=== PATIENT | male | born 1945 | race Caucasian/White ===

== ENCOUNTER 2020-06-20 13:55 | Outpatient (CLI) | payer MEDICARE, BC, SELFPAY ==
--- NOTE | 2020-06-20 14:11 | CT_ITS ---
WS: [id number] CT HEAD NONCONTRAST HISTORY: DISORIENTATION TECHNIQUE: Contiguous axial imaging performed through the brain in 2.5 mm imaging. Bone and soft tiss ue windows. Sagittal and coronal reformats reviewed. All CT scans at [facility] use at ast one of these dose optimization techniques: automated exposure control; mA and/or kV adjustment pe r patient size (includes targeted exams where dose is matched to clinical indication); or iterative r econstruction. DLP: 836.77 mGy.cm COMPARISON: 04/28/2016 No acute intracranial hemorrhage, midline shift or mass effect. Mild cerebral atrophy with no midline shift. Mild chronic microvascular ischemic disease surrounding the ventricles. No acute or subacute extra-axial fluid collections. Ventricles: Normal size with no hydrocephalus. Paranasal sinuses: As visualized are clear. Mastoid air cells: Well pneumatized. Calvarium and scalp: LEFT frontal and parietal tr holes from prior subdural evacuation. CT/CT head wo con* [id number] IMPRESSION: 1. No acute intracranial hemorrhage or edema. 2. No recurrent subdural collection. 3. Chronic microvascular ischemic disease surrounding the ventricles.
--- NOTE | 2020-06-20 14:13 | USCV_ITS ---
Vickey Yadav Age: 75 Gender: M : 1945 Exam Date: 06/20/2020 14:41 Ordering Phys: Chuck Chamorro MD Technologist: Biju Ibrahim Exam Location: [facility] [place] Indication: ? TIA Risk Factors: None Previous Vascular Surgery: None Right Brachial BP: / Left Brachial BP: / Right Left Velocity (cm/s) Spectral Plaque Velocity (cm/s) Spectral Plaque Syst/Diast Broadening Syst/Diast Broadening 55.10/ 9.90 Prox CCA 54.40 / 12.20 61.70/ 16.50 Mid CCA 48.80 / 14.10 56.20/ 12.10 Distal CCA 55.30 / 13.10 Hetro 42.60/ 11.30 Prox ICA 47.80 / 11.30 Hetro 50.40/ 12.10 Mid ICA 58.50 / 16.50 42.60/ 12.10 Distal ICA 51.90 / 10.70 68.10 ECA 70.30 0.82 ICA/CCA 1.06 Antegrade Vertebral Antegrade 30.40/ 5.90 cm/s 31.90/ 6.40 cm/s Tri Subclavian Tri 67.50 40.60 FINDINGS Comparison: none available. No significant elevation of systolic or diastolic velocities. Diffuse bilateral scattered calcified plaque and intimal thickening throughout the common carotid arteries and extending through the bifurcation. Antegrade vertebral arteries. CONCLUSIONS Bilateral ICA stenosis less than 50%. Mild bilateral diffuse atherosclerosis. Dr. Siena Yadav DO (Electronically Signed) Final Date: 21 June 2020 08:06 S
== END 2020-06-20 13:56 | disposition home or self-care (01) ==
LOC: US 13:58
PROVIDERS: PCP Family Medicine; Visit Provider Family Medicine
DX: R41.0 Disorientation, unspecified (principal); R47.9 Unspecified speech disturbances; H53.9 Unspecified visual disturbance; R51 Headache; H90.3 Sensorineural hearing loss, bilateral; I10 Essential (primary) hypertension; H53.8 Other visual disturbances; R47.89 Other speech disturbances; I63.233 Cerebral infarction due to unspecified occlusion or stenosis of bilateral carotid arteries; I67.82 Cerebral ischemia
CPT/HCPCS: 70450; 93880

== ENCOUNTER 2022-07-04 18:39 | Emergency (ER) | payer MEDICARE, BC, SELFPAY ==
[2022-07-04 18:50] VITALS: BP 157/94; PULSE 60; RESP 18; TEMP 36.9; O2SAT 94; BMI 31.3
--- NOTE | 2022-07-04 19:30 | CTR_ITS ---
PROCEDURE INFORMATION: Exam: CT Head Without Contrast Exam date and time: 07/04/2022 7:35 PM Age: 77 years old Clinical indication: Pain; Headache; Prior surgery; Additional info: Confusion TECHNIQUE: Imaging protocol: Computed tomography of the head without contrast. Radiation optimization: All CT scans at this facility use at least one of these dose optimization techniques: automated exposure control; mA and/or kV adjustment per patient size (includes targeted exams where dose is matched to clinical indication); or iterative reconstruction. COMPARISON: CT head wo con* [id number] 06/20/2020 2:14 PM RADIATION DOSE METRICS: Total DLP (mGy-cm): 1146.28 FINDINGS: Brain: There are global involutional changes of the brain which are in keeping with the patient's age. Periventricular hypodensities are nonspecific but most likely reflect chronic microvascular ischemic disease. There is no acute intracranial hemorrhage or abnormal extra-axial fluid collection identified. There is no intracranial mass effect or shift of midline structures. The cabrera-white differentiation is preserved throughout. There is no sulcal effacement. The basilar cisterns are open. Cerebral ventricles: No hydrocephalus or ventricular effacement. Paranasal sinuses: There is minimal sinus mucosal disease, with no air-fluid level identified. Mastoid air cells: There is partial opacification of the left mastoid air cells. Orbital cavities: Bilateral proptosis is noted. Correlate with clinical information regarding thyroid function. Bones/joints: No calvarial fracture or destructive osseous lesions are seen. Soft tissues: Unremarkable. CT/CT head wo con* [id number] IMPRESSION: 1. No acute intracranial pathology identified by CT. 2. Left mastoid effusion.
--- NOTE | 2022-07-04 19:31 | ED_ITS ---
HPI - Neuro Symptoms/Deficit General: Chief Complaint: Neuro Symptoms/Deficit Stated Complaint: memory loss Time Seen by Provider: 07/04/22 19:20 Source: patient Mode of arrival: ambulatory Limitations: no limitations History of Present Illness: 77-year-old male who states that he had an episode today at 5 PM that lasted a little over an hour where he was confused. He states he does not remember anything that happened patient's significant other is here with him and states that he cannot remember anything he had had no other symptoms other than that. He had no weakness no slurred speech he is able ambulate. He states his symptoms of completely resolved the last 30 minutes he remembers everything currently states this is happened to him in the past and they are unsure what it was. He denies any chest pain or headaches. Associated symptoms: Deny chest pain, nausea or vomiting Review of Systems Const: Denies: fever(s), chills, body aches or change in appetite Eyes: Denies: blurry vision or eye discomfort ENMT: Denies: throat pain or dental pain Card: Denies: chest pain Resp: Denies: dyspnea GI: Denies: abdominal pain, nausea, vomiting or diarrhea : Denies: dysuria Musc: Denies: neck pain or back pain Skin/Breast: Denies: rash Neuro: Reports: confusion Psych: Denies: depression Valente/Lymph: Denies: easy bruising All/Imm: Denies: urticaria PFSH ED PFSH: Medical History (Updated 07/04/22 @ 20:37 by Olimpia Velazquez MD) No pertinent past medical history Social History Substance/Drug Use: never NIH stroke score NIHSS: Level Of Consciousness - 1a: 0 Level Of Consciousness Questions - 1b: Both Correct Level Of Consciousness Commands - 1c: Both Correct Best Gaze - 2: Normal Visual Bain - 3: No Visual Loss Facial Palsy - 4: Normal Motor Arm Right - 5: No Drift Motor Arm Left - 5: No Drift Motor Leg Right - 6: No Drift Motor Leg Left - 6: No Drift Limb Ataxia - 7: Absent Sensory - 8: Normal Best Language - 9: No Aphasia Dysarthia - 10: Normal Extinction And Inattention - 11: 0 Score: Total Score: 0 Physical Exam Const: COMMON NORMALS: no acute distress, patient oriented x3 and healthy appearing HENMT: COMMON NORMALS: normocephalic and atraumatic HEAD & SCALP: no rmocephalic and atraumatic Eye: COMMON NORMALS: Equal, round and reactive pupils present and EOMs intact bilaterally PUPIL: Yes Equal, round and reactive pupils present Neck/C-Spine: COMMON NORMALS: full ROM and supple Chest: COMMONS NORMALS: normal inspection of the chest and normal palpation of entire chest wall Resp: COMMON NORMALS: normal respiratory effort, No retractions, No use of accessory muscles and clear to auscultation bilaterally AUSCULTATION: clear to auscultation bilaterally Cardio: COMMON NORMALS: regular rate, regular rhythm and No murmurs present (Cardio) RATE: regular rate RHYTHM: regular rhythm GI: COMMON NORMALS: Normal to inspection, nondistended, normoactive bowel sounds present, Soft to palpation, non-tender and no masses PALPATION: Yes Soft to palpation Extremity: COMMON NORMALS: normal to inspection and full ROM Neuro: COMMON NORMALS: patient oriented x3, moves all extremities and no focal motor deficits Psych: COMMON NORMALS: mental status grossly normal, Normal thought process present and cooperative THOUGHT PROCESS: Normal thought process present Skin: COMMON NORMALS: no rashes or lesions noted and no wounds GENERAL SKIN EXAM: no rashes or lesions noted Course Vital Signs: Vital signs: Vital Signs Temperature 98.4 F 07/04/22 18:50 Pulse Rate 62 07/04/22 20:14 Respiratory Rate 16 07/04/22 20:14 Blood Pressure 140/92 07/04/22 20:14 Pulse Oximetry 96 07/04/22 20:14 Oxygen Delivery Me thod 07/04/22 18:50 MDM - Neuro Symptoms/Deficit Medical Decision Making Patient presents here with an episode of confusion could have been a TIA he is well-appearing here no neurodeficits he feels improved would like to go home head CT is normal he already takes a baby aspirin a day he is to follow-up with his PCP in 4 to 7 days return if worsening he understands agrees to plan. Lab Data : 07/04/22 19:50 07/04/22 19:[address] 07/04/22 19:30 IMPRESSION: 1. No acute intracranial pathology identified by CT. 2. Left mastoid effusion. Laboratory Results WBC 12.4 10^3/uL (4.0-10.0) H 07/04/22 19:50 RBC 4.97 10^6/uL (4.1-5.3) 07/04/22 19:50 Hgb 15.9 g/dL (11.7-16.6) 07/04/22 19:50 Hct 46.4 % (42.0-52.0) 07/04/22 19:50 MCV 93.4 fl (80-94) 07/04/22 19:50 MCH 32.0 pg (28.0-34.0) 07/04/22 19:50 MCHC 34.3 g/dL (30.0-36.0) 07/04/22 19:50 RDW 13.6 % (12.1-15.1) 07/04/22 19:50 Plt Count 283 10^3/cmm (130-400) 07/04/22 19:50 MPV 10.3 fL (7.4-10.4) 07/04/22 19:50 Neut % (Auto) 67.5 % 07/04/22 19:50 Lymph % (Auto) 21.6 % 07/04/22 19:50 Twiggs % (Auto) 9.2 % 07/04/22 19:50 Eos % (Auto) 0.7 % 07/04/22 19:50 Baso % (Auto) 0.6 % 07/04/22 19:50 Neut # (Auto) 8.32 10^3/uL (1.8-7.7) H 07/04/22 19:50 Lymph # (Auto) 2.7 10^3/uL (0.8-4.8) 07/04/22 19:50 Twiggs # (Auto) 1.1 10^3/uL (0.2-0.9) H 07/04/22 19:50 Eos # (Auto) 0.1 10^3/uL (0.0-0.8) 07/04/22 19:50 Baso # (Auto) 0.1 10^3/uL (0.0-0.1) 07/04/22 19:50 Nucleated RBC % (auto) 0 % 07/04/22 19:50 Nucleated RBCs # 0.0 /100WBC 07/04/22 19:50 Sodium 134 mmol/L (136-145) L 07/04/22 19:50 Potassium 3.8 mmol/L (3.5-5.1) 07/04/22 19:50 Chloride 97 mmol/L (98-107) L 07/04/22 19:50 Carbon Dioxide 27 mmol/L (22-29) 07/04/22 19:50 Anion Gap 13.8 (5-19) 07/04/22 19:50 BUN 22 mg/dL (8-23) 07/04/22 19:50 Creatinine 1.3 mg/dL (0.7-1.2) H 07/04/22 19:50 GFR Calculation Not Reportable 07/04/22 19:50 Glucose 121 mg/dL (65-115) H 07/04/22 19:50 POC Glucose 102 mg/dL (70-110) 07/04/22 19:49 Calculated Osmolality 283 mOsm/kg (285-295) L 07/04/22 19:50 Calcium 9.6 mg/dL (8.5-10.5) 07/04/22 19:50 Total Bilirubin 0.4 mg/dL (0.15-1.2) 07/04/22 19:50 AST 21 U/L (0-40) 07/04/22 19:50 ALT 19 U/L (0-41) 07/04/22 19:50 Alkaline Phosphatase 62 U/L (40-130) 07/04/22 19:50 Total Protein 8.0 g/dL (6.6-8.7) 07/04/22 19:50 Albumin 4.5 g/dL (3.5-5.2) 07/04/22 19:50 Globulin 3.5 g/dL (1.3-4.6) 07/04/22 19:50 Urine Color Yellow (Yellow) 07/04/22 19:54 Urine Appearance Clear (CLEAR) 07/04/22 19:54 Urine pH 5 (5-7) 07/04/22 19:54 Ur Specific [place] 1.010 (1.005-1.030) 07/04/22 19:54 Urine Protein Neg (Negative) 07/04/22 19:54 Urine Glucose (UA) Norm (Normal) 07/04/22 19:54 Urine Ketones Negative (Negative) 07/04/22 19:54 Urine Blood Neg (Negative) 07/04/22 19:54 Urine Nitrate Negative (Negative) 07/04/22 19:54 Urine Bilirubin Neg (Negative) 07/04/22 19:54 Urine Urobilinogen Norm mg/dL (Negative) 07/04/22 19:54 Ur Leukocyte Esterase Negative (Negative) 07/04/22 19:54 Discharge Plan Discharge Patient Disposition: Home Clinical Impression: Brain TIA Discharge Orders: Discharge ED (Routine); Ordered 07/04/22 Ordered By: Olimpia Velazquez Referrals: Chuck Chamorro MD [Primary Care Provider] - 1-3 days Discharge Diet: Advance as tolerated Discharge Activity: Resume usual activity Patient Instructions: Transient Ischemic Attack (ED) Coding Level of Care Code 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
[2022-07-04 19:56] LABS: Basophils # 0.1 10^3/uL (0.0-0.1); Basophils % 0.6 %; Eosinophils # 0.1 10^3/uL (0.0-0.8); Eosinophils % 0.7 %; Hematocrit 46.4 % (42.0-52.0); Hemoglobin 15.9 g/dL (11.7-16.6); Lymphocytes # 2.7 10^3/uL (0.8-4.8); Lymphocytes % 21.6 %; Mean Corpuscular HGB Conc 34.3 g/dL (30.0-36.0); Mean Corpuscular Volume 93.4 fl (80-94); Mean Platelet Volume 10.3 fL (7.4-10.4); Monocytes # 1.1 10^3/uL (0.2-0.9); Monocytes % 9.2 %; Neutrophils # 8.32 10^3/uL (1.8-7.7); Neutrophils % 67.5 %; Nucleated Red Blood Cells % 0 %; Platelet Count 283 10^3/cmm (130-400); Red Blood Count 4.97 10^6/uL (4.1-5.3); Red Cell Distribution Width 13.6 % (12.1-15.1); White Blood Count 12.4 10^3/uL (4.0-10.0)
--- NOTE | 2022-07-04 19:57 | ECG_ITS ---
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 Measurements Intervals [place] Rate: 56 P: 41 MA: 209 QRS: -47 QRSD: 118 T: 1 QT: 407 QTc: 393 Interpretive Statements SINUS BRADYCARDIA LEFT ANTERIOR FASCICULAR BLOCK [QRS AXIS <= -45, QR IN I, RS IN II] VOLTAGE CRITERIA FOR LVH [MEETS CRITERIA IN ONE OF: R(aVL), S(V1), R(V5), R(V5/V6)+S(V1)] POSSIBLE LATERAL MYOCARDIAL INFARCTION , PROBABLY OLD [30 ms Q WAVE IN I/aVL/V5/V6] Compared to ECG 04/28/2016 17:24:16 Left anterior fascicular block now present Myocardial infarct finding now present Sinus rhythm no longer present Left-axis deviation no longer present Electronically Signed On 07-06-2022 22:02:35 CDT by Nasir Duke M.D. [id number]
[2022-07-04 19:58] LABS: Glucose Point of Care 102 mg/dL (70-110)
[2022-07-04 20:00] LABS: Add Urine Microscopic? NO; Bilirubin Urine Neg (Negative); Blood Urine Neg (Negative); Glucose Urine UA Norm (Normal); Ketones Urine Negative (Negative); Nitrate Urine Negative (Negative); Protein Urine Neg (Negative); Urine Appearance Clear (CLEAR); Urine Color Yellow (Yellow); pH Urine 5 (5-7)
[2022-07-04 20:01] LABS: Charge for UA Resulting for Rev; Leukocyte Esterase Urine Negative (Negative); Urobilinogen Urine Norm (Negative)
[2022-07-04 20:14] VITALS: BP 140/92; PULSE 62; RESP 16; O2SAT 96
[2022-07-04 20:19] LABS: Alanine Aminotransferase 19 U/L (0-41); Albumin Level 4.5 g/dL (3.5-5.2); Alkaline Phosphatase 62 U/L (40-130); Anion Gap 13.8 (5-19); Aspartate Amino Transferase 21 U/L (0-40); Blood Urea Nitrogen 22 mg/dL (8-23); Calcium 9.6 mg/dL (8.5-10.5); Carbon Dioxide 27 mmol/L (22-29); Chloride 97 mmol/L (98-107); Globulin 3.5 g/dL (1.3-4.6); Glucose 121 mg/dL (65-115); Osmolality Calculated 283 mOsm/kg (285-295); Potassium 3.8 mmol/L (3.5-5.1); Sodium 134 mmol/L (136-145); Total Bilirubin 0.4 mg/dL (0.15-1.2)
[2022-07-04 20:49] VITALS: BP 139/94; PULSE 61; RESP 16; O2SAT 95
== END 2022-07-04 20:52 | disposition home or self-care (01) ==
PROVIDERS: Emergency Provider Emergency Medicine; PCP Family Medicine
DX: G45.9 Transient cerebral ischemic attack, unspecified (principal)
CPT/HCPCS: 36416; 70450; 80053; 81003; 82962; 85025; 93005; 99285

== ENCOUNTER 2024-09-28 19:44 | Inpatient (IN) | payer MEDICARE, SELFPAY ==
--- NOTE | 2024-09-28 19:50 | CTR_ITS ---
PROCEDURE INFORMATION: Exam: CT Head Without Contrast Exam date and time: 09/28/2024 7:49 PM Age: 79 years old Clinical indication: Stroke-like symptoms; Altered mental status/memory loss; Additional info: Possible stroke TECHNIQUE: Imaging protocol: Computed tomography of the head without contrast. Radiation optimization: All CT scans at this facility use at least one of these dose optimization techniques: automated exposure control; mA and/or kV adjustment per patient size (includes targeted exams where dose is matched to clinical indication); or iterative reconstruction. Other technique: STROKE PROTOCOL was implemented. COMPARISON: CT head wo con* [id number] 07/04/2022 7:35 PM RADIATION DOSE METRICS: Total DLP (mGy-cm): 1107.5 FINDINGS: Brain: Moderate periventricular white matter changes likely related to chronic ischemic small vessel disease. No intracranial mass, hemorrhage or signs of recent infarct. Brain atrophy present. No midline shift or mass effect. Cerebral ventricles: No ventriculomegaly. Paranasal sinuses: Visualized sinuses are unremarkable. No fluid levels. Mastoid air cells: Visualized mastoid air cells are well aerated. Bones: Unremarkable. No acute fracture. Soft tissues: Unremarkable. CT/CT head wo con* [id number] IMPRESSION: No acute intracranial abnormality. ASSESSMENT: ASPECTS ([place] Stroke Program Early CT Score) is 10.
--- NOTE | 2024-09-28 19:50 | CTR_ITS ---
PROCEDURE INFORMATION: Exam: CTA Head With Contrast, Arteriography Exam date and time: 09/28/2024 7:54 PM Age: 79 years old Clinical indication: Stroke-like symptoms; Altered mental status/memory loss; Additional info: Possible stroke TECHNIQUE: Imaging protocol: Computed tomographic angiography of the head with contrast. Exam focused on the arteries. 3D rendering (Not supervised by radiologist): MIP and/or 3D reconstructed images were created by the technologist. Radiation optimization: All CT scans at this facility use at least one of these dose optimization techniques: automated exposure control; mA and/or kV adjustment per patient size (includes targeted exams where dose is matched to clinical indication); or iterative reconstruction. Contrast material: OMNI 350; Contrast volume: 100 ml; Contrast route: INTRAVENOUS (IV); COMPARISON: CT head wo con* [id number] 09/28/2024 7:49 PM RADIATION DOSE METRICS: Total DLP (mGy-cm): 490.2 FINDINGS: ANTERIOR CIRCULATION: Right internal carotid artery: Intracranial segment is patent with no significant stenosis. No aneurysm. Right middle cerebral artery: No occlusion or significant stenosis. No aneurysm. Right anterior cerebral artery: No occlusion or significant stenosis. No aneurysm. Left internal carotid artery: Intracranial segment is patent with no significant stenosis. No aneurysm. Left middle cerebral artery: No occlusion or significant stenosis. No aneurysm. Left anterior cerebral artery: No occlusion or significant stenosis. No aneurysm. POSTERIOR CIRCULATION: Right vertebral artery: No occlusion or significant stenosis. No aneurysm. Left vertebral artery: No occlusion or significant stenosis. No aneurysm. Basilar artery: No occlusion or significant stenosis. No aneurysm. Right posterior cerebral artery: No occlusion or significant stenosis. No aneurysm. Left posterior cerebral artery: No occlusion or significant stenosis. No aneurysm. Brain: No definite mass, mass effect, or midline shift. Cerebral ventricles: No ventriculomegaly. Bones/joints: Unremarkable. No acute fracture. Soft tissues: Unremarkable. PROCEDURE INFORMATION: Exam: CTA Neck With Contrast Exam date and time: 09/28/2024 7:54 PM Age: 79 years old Clinical indication: Stroke-like symptoms; Altered mental status/memory loss; Additional info: Possible stroke TECHNIQUE: Imaging protocol: Computed tomographic angiography of the neck with contrast. Exam focused on the cervical segments of the vasculature. 3D rendering (Not supervised by radiologist): MIP and/or 3D reconstructed images were created by the technologist. Radiation optimization: All CT scans at this facility use at least one of these dose optimization techniques: automated exposure control; mA and/or kV adjustment per patient size (includes targeted exams where dose is matched to clinical indication); or iterative reconstruction. Contrast material: OMNI 350; Contrast volume: 100 ml; Contrast route: INTRAVENOUS (IV); COMPARISON: CT head wo con* [id number] 09/28/2024 7:49 PM RADIATION DOSE METRICS: Total DLP (mGy-cm): 490.2 FINDINGS: Right common carotid artery: No stenosis. No dissection or occlusion. Right internal carotid artery: No stenosis of the extracranial segment. No dissection or occlusion. Right external carotid artery: No occlusion or stenosis of the origin. Left common carotid artery: No stenosis. No dissection or occlusion. Left internal carotid artery: No stenosis of the extracranial segment. No dissection or occlusion. Left external carotid artery: No occlusion or stenosis of the origin. Right vertebral artery: No stenosis. No dissection or occlusion. Left vertebral artery: No stenosis. No dissection or occlusion. Soft tissues: Normal. No significant soft tissue swelling. Bones/joints: No acute fracture. CT/CT angio headneck* [id number] IMPRESSION: No large vessel stenosis or occlusion. IMPRESSION: No stenosis or occlusion. REFERENCES: NASCET CRITERIA. The degree of stenosis in the cervical segment of the internal carotid artery is based on NASCET criteria. Normal is no stenosis. Mild is less than 50% stenosis. Moderate is 50-69% stenosis. Severe is 70% to 99% stenosis. Total occlusion is no detectable patent lumen.
--- NOTE | 2024-09-28 19:50 | XRR_ITS ---
PROCEDURE INFORMATION: Exam: XR Chest Exam date and time: 09/28/2024 8:12 PM Age: 79 years old Clinical indication: Other: Weak; Additional info: Weakness TECHNIQUE: Imaging protocol: Radiologic exam of the chest. Views: 1 view. COMPARISON: CT angio headneck* [id number] 09/28/2024 7:54 PM FINDINGS: Lungs: There is mild pulmonary vascular congestion. The lungs are free of consolidation. Pleural spaces: Unremarkable. No pleural effusion. No pneumothorax. Heart/Mediastinum: The heart is enlarged. Bones/joints: Unremarkable. XR/XR chest 1V portable [id number] IMPRESSION: Cardiomegaly with mild pulmonary vascular congestion.
--- NOTE | 2024-09-28 19:51 | PC.NURSE ---
pt unable to answer SI questions at this time
[2024-09-28] MEDS: iohexol 350 mg/mL 500 mL Btl (per mL) IV (20:01)
[2024-09-28 20:04] VITALS: BP 142/75; PULSE 84; RESP 16; TEMP 37; O2SAT 98
[2024-09-28 20:20] LABS: Glucose Point of Care 95 mg/dL (70-110)
--- NOTE | 2024-09-28 20:35 | W.ED.NEUROSD ---
HPI - Neuro Symptoms/Deficit General: Chief Complaint: Neuro Symptoms/Deficit Stated Complaint: stroke alert Time Seen by Provider: 09/28/24 19:46 History of Present Illness: 79-year-old man who presents emergency room by ambulance with concern for stroke. Symptoms started just over an hour prior to arrival. tells me later that he initially had some right arm weakness slurred speech and facial droop. He went straight to the CT scanner as stroke was called prior to arrival. I evaluated him initially in the CT scanner. He had some difficulty with word finding and difficulty following commands at that time. He was moving all of his extremities. He can tell me his name but had a hard time with complex commands at that time. I saw no facial droop. No visual deficits. Related Data Allergies Allergy/AdvReac Type Severity Reaction Status Date / Time No Known Allergies Allergy Verified 07/04/22 18:50 Review of Systems Narrative: Constitutional symptoms: Negative except as documented in HPI. Skin symptoms: Negative except as documented in HPI. Eye symptoms: Negative except as documented in HPI. ENMT symptoms: Negative except as documented in HPI. Respiratory symptoms: Negative except as documented in HPI. Cardiovascular symptoms: Negative except as documented in HPI. Gastrointestinal symptoms: Negative except as documented in HPI. Genitourinary symptoms: Negative except as documented in HPI. Musculoskeletal symptoms: Negative except as documented in HPI. Neurologic symptoms: Negative except as documented in HPI. Psychiatric symptoms: Negative except as documented in HPI. Endocrine symptoms: Negative except as documented in HPI. [facility] ED PFSH: Medical History (Updated 09/28/24 @ 22:29 by Starr Mercedes MD) Hypertension Hypothyroidism (acquired) 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', thyroidectomy Traumatic brain injury No pertinent past medical history Social History Substance/Drug Use: never Course Vital Signs: Vital signs: Vital Signs Temperature 98.6 F 09/28/24 20:04 Pulse Rate 67 09/28/24 22:24 Respiratory Rate 18 09/28/24 22:24 Blood Pressure 139/83 09/28/24 22:24 Pulse Oximetry 98 09/28/24 22:24 Oxygen Delivery Me thod Room Air 09/28/24 22:24 MDM - Neuro Symptoms/Deficit Medical Decision Making Medical decision making: Differential diagnosis for patient with focal neurologic deficit(s) includes but not limited to and based on the above HPI, review of systems and physical exam: ischemic stroke, hemorrhagic stroke and embolic stroke secondary to atrial fibrillation), TIA, Velasquez's palsey, metabolic encephalopathy with previous stroke. Orders placed to evaluate differential diagnosis based on the above differential, HPI and physical exam NIH Stroke Scale/Score (NIHSS) from [employer] on 09/28/2024 All calculations should be rechecked by clinician prior to use RESULT SUMMARY: 3 points NIH Stroke Scale INPUTS: 1A: Level of consciousness ?> 0 = Alert; keenly responsive 1B: Ask month and age ?> 1 = 1 question right 1C: 'Blink eyes' & 'squeeze hands' ?> 1 = Performs 1 task 2: Horizontal extraocular movements ?> 0 = Normal 3: Visual grullon ?> 0 = No visual loss 4: Facial palsy ?> 0 = Normal symmetry 5A: Left arm motor drift ?> 0 = No drift for 10 seconds 5B: Right arm motor drift ?> 0 = No drift for 10 seconds 6A: Left leg motor drift ?> 0 = No drift for 5 seconds 6B: Right leg motor drift ?> 0 = No drift for 5 seconds 7: Limb Ataxia ?> 0 = No ataxia 8: Sensation ?> 0 = Normal; no sensory loss 9: Language/aphasia ?> 1 = Mild-moderate aphasia: some obvious changes, without significant limitation 10: Dysarthria ?> 0 = Normal 11: Extinction/inattention ?> 0 = No abnormality Consultation: I spoke with Dr. Thomason who is on-call for the neurology. Based on my exam at the time he had a stroke scale of 3. He does not recommend TNKase at this time. He came and evaluated the patient and symptoms had improved some and at best he had a stroke scale of 1 at that time. He recommends Plavix. Aspirin. Initiation of statin. Admission. Possible cardiology consultation. Lab Review: Laboratory results were reviewed and interpreted by myself the emergency room physician. Mild leukocytosis with a white count of 12,000. No anemia. No renal failure. CT head: No acute intracranial process. no intracranial hemorrhage, no evidence of infarct. no evidence of acute fracture.This was reviewed and interpreted by myself the ER physician. CTA of the head and neck: No obvious stenosis or occlusions are identified. No mass. This was reviewed and interpreted by myself the emergency room physician. I also reviewed the radiology report. I reviewed the patient's medical record. Reexamination: Patient remained stable. No increased work of breathing. No altered mental status. No focal motor deficits. He has had some fluctuations of his difficulty with speaking but no facial droop or focal motor deficits. He is moving all his extremities and following commands at this time. Consultation: I spoke with Dr. Matthew who is on-call for the hospitalist service who agrees to admission. Assessment and plan: TIA versus a stroke ?Plavix and aspirin given in the emergency room. -I discussed the patient with the hospitalist on-call who is admitting the patient. - Discussed findings and plan with patient. Answered any questions. - All laboratory values were reviewed and interpreted personally by myself, the ER physician - All imaging was reviewed and interpreted personally by myself, the ER physician. - Evaluation and treatment of this problem were appropriate in the emergency setting Lab Data 09/28/24 20:08 09/28/24 20:08 Radiology Impressions Chest X-Ray 09/28/24 19:50 IMPRESSION: Cardiomegaly with mild pulmonary vascular congestion. Head CT 09/28/24 19:50 IMPRESSION: No acute intracranial abnormality. ASSESSMENT: ASPECTS ([place]arl[place] Stroke Program Early CT Score) is 10. ADDENDUM: 09/28/242010 COMMENT: THIS REPORT CONTAINS FINDINGS THAT MAY BE CRITICAL TO PATIENT CARE. The exam findings were verbally communicated by me to STARR MERCEDES via telephone conference at 8:10 PM [facility] on 09/28/2024. The findings were acknowledged and understood. Head/Neck CTA 09/28/24 19:50 IMPRESSION: No large vessel stenosis or occlusion. IMPRESSION: No stenosis or occlusion. REFERENCES: NASCET CRITERIA. The degree of stenosis in the cervical segment of the internal carotid artery is based on NASCET criteria. Normal is no stenosis. Mild is less than 50% stenosis. Moderate is 50-69% stenosis. Severe is 70% to 99% stenosis. Total occlusion is no detectable patent lumen. ADDENDUM: 09/28/242020 COMMENT: THIS REPORT CONTAINS FINDINGS THAT MAY BE CRITICAL TO PATIENT CARE. The exam findings were verbally communicated by me to STARR MERCEDES via telephone conference at 8:19 PM [facility] on 09/28/2024. The findings were acknowledged and understood. Laboratory Results WBC 12.63 10^3/uL (3.29-11.43) H 09/28/24 20:08 RBC 4.57 10^6/uL (3.85-5.65) 09/28/24 20:08 Hgb 14.10 g/dL (11.27-16.99) 09/28/24 20:08 Hct 42.1 % (37-53) 09/28/24 20:08 MCV 92.1 fl (82-101) 09/28/24 20:08 MCH 30.9 pg (27-33) 09/28/24 20:08 MCHC 33.5 g/dL (30-55) 09/28/24 20:08 RDW 14.0 % (12.1-15.1) 09/28/24 20:08 Plt Count 272 10^3/cmm (157-399) 09/28/24 20:08 MPV 10.8 fL (7.4-10.4) H 09/28/24 20:08 Neut % (Auto) 63.1 % 09/28/24 20:08 Lymph % (Auto) 24.9 % 09/28/24 20:08 [place] % (Auto) 10.4 % 09/28/24 20:08 Eos % (Auto) 0.9 % 09/28/24 20:08 Baso % (Auto) 0.4 % 09/28/24 20:08 Neut # (Auto) 7.97 10^3/uL (1.8-7.7) H 09/28/24 20:08 Lymph # (Auto) 3.2 10^3/uL (0.8-4.8) 09/28/24 20:08 [place] # (Auto) 1.3 10^3/uL (0.2-0.9) H 09/28/24 20:08 Eos # (Auto) 0.1 10^3/uL (0.0-0.8) 09/28/24 20:08 Baso # (Auto) 0.1 10^3/uL (0.0-0.1) 09/28/24 20:08 Nucleated RBC % (auto) 0 % 09/28/24 20:08 Nucleated RBCs # 0.0 /100WBC 09/28/24 20:08 PT 13.40 SECONDS (12.1-14.9) 09/28/24 20:08 INR 0.96 (0.8-1.2) 09/28/24 20:08 APTT 28.7 SECONDS (23.9-36.7) 09/28/24 20:08 Sodium 137 mmol/L (136-145) 09/28/24 20:08 Potassium 3.2 mmol/L (3.5-5.1) L 09/28/24 20:08 Chloride 100 mmol/L (98-107) 09/28/24 20:08 Carbon Dioxide 25 mmol/L (22-29) 09/28/24 20:08 Anion Gap 15.2 (5-19) 09/28/24 20:08 BUN 20 mg/dL (8-23) 09/28/24 20:08 Creatinine 1.0 mg/dL (0.7-1.2) 09/28/24 20:08 GFR Calculation Not Reportable 09/28/24 20:08 Glucose 98 mg/dL (65-115) 09/28/24 20:08 POC Glucose 95 mg/dL (70-110) 09/28/24 20:14 Calculated Osmolality 287 mOsm/kg (285-295) 09/28/24 20:08 Calcium 8.6 mg/dL (8.5-10.5) 09/28/24 20:08 Total Bilirubin 0.4 mg/dL (0.15-1.2) 09/28/24 20:08 AST 15 U/L (0-40) 09/28/24 20:08 ALT 16 U/L (0-41) 09/28/24 20:08 Alkaline Phosphatase 57 U/L (40-130) 09/28/24 20:08 Total Protein 6.6 g/dL (6.6-8.7) 09/28/24 20:08 Albumin 3.8 g/dL (3.5-5.2) 09/28/24 20:08 Globulin 2.8 g/dL (1.3-4.6) 09/28/24 20:08 All radiology interpretation(s) finalized by discharge Discharge Plan Discharge Patient Disposition: Admitted As Inpatient Admit Provider: Sara Matthew Clinical Impression: TIA (transient ischemic attack), Dysarthria Condition: Stable Coding Level of Care Code ED House Decorator for Aris Morales
[2024-09-28 20:37] LABS: Basophils # 0.1 10^3/uL (0.0-0.1); Basophils % 0.4 %; Eosinophils # 0.1 10^3/uL (0.0-0.8); Eosinophils % 0.9 %; Hematocrit 42.1 % (37-53); Lymphocytes # 3.2 10^3/uL (0.8-4.8); Lymphocytes % 24.9 %; Mean Corpuscular HGB Conc 33.5 g/dL (30-55); Mean Corpuscular Hemoglobin 30.9 pg (27-33); Mean Corpuscular Volume 92.1 fl (82-101); Mean Platelet Volume 10.8 fL (7.4-10.4); Monocytes # 1.3 10^3/uL (0.2-0.9); Monocytes % 10.4 %; Neutrophils # 7.97 10^3/uL (1.8-7.7); Neutrophils % 63.1 %; Nucleated Red Blood Cells % 0 %; Platelet Count 272 10^3/cmm (157-399); Red Blood Count 4.57 10^6/uL (3.85-5.65); White Blood Count 12.63 10^3/uL (3.29-11.43)
[2024-09-28 20:45] LABS: INR 0.96 (0.8-1.2)
[2024-09-28 20:46] LABS: Partial Thromboplastin Time 28.7 SECONDS (23.9-36.7)
[2024-09-28 20:52] LABS: Alanine Aminotransferase 16 U/L (0-41); Albumin Level 3.8 g/dL (3.5-5.2); Alkaline Phosphatase 57 U/L (40-130); Anion Gap 15.2 (5-19); Aspartate Amino Transferase 15 U/L (0-40); Blood Urea Nitrogen 20 mg/dL (8-23); Calcium 8.6 mg/dL (8.5-10.5); Carbon Dioxide 25 mmol/L (22-29); Chloride 100 mmol/L (98-107); Creatinine Clr Calc Pharmacy 64.1323; Globulin 2.8 g/dL (1.3-4.6); Glucose 98 mg/dL (65-115); Osmolality Calculated 287 mOsm/kg (285-295); Potassium 3.2 mmol/L (3.5-5.1); Sodium 137 mmol/L (136-145); Total Bilirubin 0.4 mg/dL (0.15-1.2); Total Protein 6.6 g/dL (6.6-8.7)
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
--- NOTE | 2024-09-28 21:49 | USCV_ITS ---
Vickey Yadav Age: 79 Gender: M : 1945 Exam Date: 09/28/2024 23:19 Ordering Phys: Sara Matthew MD Technologist: MARS Exam Location: [facility] – [place] Indication: TIA, RIGHT hemiparesis, RIGHT facial droop, dysphasia, BUBBLE STUDY IS ORDERED BP: 139 / 83 HR: 59 Rhythm: Sinus Technical Quality: Adequate MEASUREMENTS (Male / Female) Normal Values 2D ECHO LV Diastolic Diameter PLAX 4.7 cm 4.2 - 5.9 / 3.9 - 5.3 cm IVS Diastolic Thickness 1.8 cm 0.6 - 1.0 / 0.6 - 0.9 cm IVS Systolic Thickness 1.6 cm LVPW Diastolic Thickness 2.0 cm 0.6 - 1.0 / 0.6 - 0.9 cm LVPW Systolic Thickness 2.0 cm LVOT Diameter 2.1 cm LV Ejection Fraction 2D Teich 56.2 % LV Ejection Fraction MOD 4C 54.2 % LV Ejection Fraction MOD 2C 64.2 % LV Ejection Fraction 2C AL 66.0 % LA Diameter 3.6 cm Aorta at Sinotubular Diameter 3.1 cm IVC Diameter 1.6 cm M-MODE LA Ao Ratio MM 1.3 AV Cusp Separation MM 1.7 cm DOPPLER AV Peak Velocity 152.0 cm/s LVOT Peak Velocity 77.0 cm/s AV Area Cont Eq vti 2.0 cm squared AV Area Cont Eq pk 1.8 cm squared MV Peak Velocity 124.0 cm/s MV Area PHT 3.4 cm squared Mitral E to A Ratio 0.8 TR Peak Velocity 270.0 cm/s TR Peak Gradient 29.2 mmHg TV Peak E Velocity 53.0 cm/s PV Peak Velocity 104.0 cm/s FINDINGS Left Ventricle Mild left ventricular hypertrophy. No regional wall motion abnormalities. Normal left ventricular size and systolic function, EF 56%. Right Ventricle The right ventricle is normal in size and function. Right Atrium The right atrium is normal in size. Left Atrium The left atrium is normal in size. Mitral Valve Trace to mild mitral valve regurgitation. Aortic Valve Thickened aortic valve. Mild aortic valve calcification. Features of aortic valve sclerosis. Mild aortic valve regurgitation. Tricuspid Valve Mild tricuspid valve regurgitation. Estimated pulmonary artery peak systolic pressure 35 mmHg Pulmonic Valve No gross abnormalities noted Pericardium Normal pericardium without effusion. Aorta Normal ascending aorta dimension. IVC Normal inferior vena cava. CONCLUSIONS Mild left ventricular hypertrophy. No regional wall motion abnormalities. Normal left ventricular size and systolic function, EF 56%. Trace to mild mitral valve regurgitation. Thickened aortic valve. Mild aortic valve calcification. Features of aortic valve sclerosis. Mild aortic valve regurgitation. Mild tricuspid valve regurgitation. Estimated pulmonary artery peak systolic pressure 35 mmHg. There is no pericardial effusion. There are no intracardiac masses. No similar previous studies are available for comparison Dr Aldair Carver MD FAC (Electronically Signed) Final Date: 29 September 2024 09:09 S
[2024-09-28] MEDS: enoxaparin 40 mg/0.4 mL Syringe SUBCUT (22:06)
[2024-09-28] MEDS: thiamine 100 mg/mL 2mL SDV IVP (22:06)
[2024-09-28] MEDS: aspirin 81 mg Chew Tablet 324 MG PO (22:07)
[2024-09-28] MEDS: clopidogrel 75 mg Tablet PO (22:07)
[2024-09-28 22:24] VITALS: BP 139/83; PULSE 67; RESP 18; O2SAT 98
--- NOTE | 2024-09-28 22:28 | ECG_ITS ---
[facility] Test Date: 2024-09-29 Pat Name: Vickey Yadav Department: Room: 277 Gender: Male Silo Operator: : 1945 Requested By: Starr Weathers Order Number: [id number] Lux MD: Aldair Carver M.D. Measurements Intervals [place] Rate: 58 P: 37 DC: 204 QRS: -43 QRSD: 111 T: 12 QT: 440 QTc: 435 Interpretive Statements SINUS BRADYCARDIA POSSIBLE LEFT ATRIAL ENLARGEMENT [-0.1mV P-WAVE IN V1/V2] LEFT AXIS DEVIATION [QRS AXIS < -30] PATTERN CONSISTENT WITH PULMONARY DISEASE POSSIBLE LEFT VENTRICULAR HYPERTROPHY [VOLTAGE CRITERIA PLUS LAE OR QRS WIDENING] Compared to ECG 07/04/2022 19:57:03 Left-axis deviation now present Left anterior fascicular block no longer present Myocardial infarct finding no longer present Electronically Signed On 09-29-2024 18:19:23 KNOT BORER by Aldair Carver M.D. [email or web address]
[2024-09-28 22:30] VITALS: BP 139/83; PULSE 65; RESP 16; O2SAT 96
[2024-09-28 23:10] LABS: Estmated Average Glucose 128; Hemoglobin A1C 6.1 % (4.0-6.0)
[2024-09-28 23:27] VITALS: BP 167/89; PULSE 64; RESP 17; TEMP 36.8; O2SAT 96
[2024-09-28 23:47] LABS: Bilirubin Urine Negative (Negative); Blood Urine Negative (Negative); Glucose Urine UA Negative (Normal); Ketones Urine Trace (Negative); Leukocyte Esterase Urine Negative (Negative); Nitrate Urine Negative (Negative); Protein Urine Negative (Negative); Urine Appearance Clear (CLEAR); Urine Color Yellow (Yellow)
[2024-09-28 23:52] LABS: Bacteria Urine None Seen /hpf; Hyaline Casts Urine 0.81 /lpf; RBC Urine 0-2 /hpf (0-2); Squamous Epithelial Cell Urine 0-5 /hpf (0-5); WBC Urine 0-5 /hpf (0-5)
[2024-09-28 23:56] LABS: Specific Gravity, Urine 1.047 (1.005-1.030)
[2024-09-29] VITALS (8 sets, daily range): BP systolic 123–165; BP diastolic 68–86; PULSE 59–75; RESP 16–19; TEMP 36.5–37.1; O2SAT 90–96; BMI 29.0
[2024-09-29 00:34] LABS: Thyroid Stimulating Hormone 0.05 uIU/mL (0.27-4.20); Vitamin B12 979 pg/mL (232-1245)
[2024-09-29] MEDS: levothyroxine 150 mcg Tablet PO (05:42)
[2024-09-29 06:30] LABS: Anion Gap 16.4 (5-19); Blood Urea Nitrogen 16 mg/dL (8-23); Calcium 8.8 mg/dL (8.5-10.5); Carbon Dioxide 22 mmol/L (22-29); Chloride 102 mmol/L (98-107); Creatinine Clr Calc Pharmacy 67.8986; Glucose 104 mg/dL (65-115); Magnesium 1.9 mg/dL (1.7-2.3); Osmolality Calculated 285 mOsm/kg (285-295); Potassium 3.4 mmol/L (3.5-5.1); Sodium 137 mmol/L (136-145)
--- NOTE | 2024-09-29 08:01 | MR_ITS ---
WS: [id number] MRI HEAD WITHOUT CONTRAST TECHNIQUE: Sagittal T1, T2 axial, T2 axial FLAIR, axial and coronal T1 images, axial susceptibility w eighted imaging, axial diffusion weighted images, and coronal T2 images were obtained. CLINICAL INFORMATION: cva COMPARISON: CT 09/28/2024 FINDINGS: A few patchy foci of restricted diffusion in the LEFT posterior superior temporal lobe extending into the posterior parietal occipital junction compatible with acute ischemia. Minimal associated edema. No significant mass effect. No midline shift. No other foci of restricted diffusion. Moderate small vessel changes. Moderate parenchymal volume loss. Small vessel changes in the elisha. No rmal vascular flow voids at the skull base. No extra-axial fluid collections. Prominent perivascular spaces in the basal ganglia. Mild mucosal thickening in the ethmoid air cells. Mucosal thickening LEF T mastoid tip. Normal posterior nasopharynx. Normal optic chiasm and pituitary infundibulum. Mild sym metric atrophy temporal lobes hippocampal formations. Susceptibility artifact overlying the LEFT frontal lobe likely a prominent vessel is seen on the CTA. No other acute findings. MR/MR head wo con* [id number] IMPRESSION: 1. A few patchy foci of restricted diffusion in the LEFT posterior superior te mporal lobe and LEFT insula extending into the LEFT posterior temporal lobe and parietal occipital junction. Mild associated edema. 2. Moderate to advanced small vessel changes with moderate parenchymal volume loss. 3. Susceptibility artifact overlying the LEFT frontal lobe likely a prominent vessel is seen on the CTA. 4. No other acute findings. Notified Garrick Castellano MD at 09/29/2024 1:24 PM.
[2024-09-29 08:50] LABS: Free T4 Free Thyroxine 1.55 ng/dL (0.82-1.77); T3 Free 3.1 PG/ML (2.0-4.4)
--- NOTE | 2024-09-29 09:16 | ECG_ITS ---
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 Measurements Intervals [place] Rate: 73 P: 0 [place]: 176 QRS: -45 QRSD: 108 T: 5 QT: 404 QTc: 446 Interpretive Statements SINUS RHYTHM PATTERN CONSISTENT WITH PULMONARY DISEASE LEFT ANTERIOR FASCICULAR BLOCK [QRS AXIS <= -45, QR IN I, RS IN II] VOLTAGE CRITERIA FOR LVH [MEETS CRITERIA IN ONE OF: R(aVL), S(V1), R(V5), R(V5/V6)+S(V1)] Compared to ECG 09/29/2024 00:06:11 Left anterior fascicular block now present Sinus bradycardia no longer present Left-axis deviation no longer present Electronically Signed On 09-29-2024 18:19:32 CRANE HOOKER by Aldair Carver M.D. [email or web address]
[2024-09-29] MEDS: ondansetron 2 mg/ML SDV 2 mL 4 MG IVP (09:51)
[2024-09-29 10:09] LABS: Troponin(5th) Baseline 11 ng/L (0-15)
[2024-09-29] MEDS: sodium chloride 0.9% 1,000 ML 100 ML IV (10:52)
[2024-09-29] MEDS: metoclopramide 5 mg/mL SDV 2 mL IVP (11:04)
[2024-09-29] MEDS: acetaminophen 500 mg Tablet PO (14:32)
--- NOTE | 2024-09-29 14:54 | PC.NURSE ---
international exchange coordinator- saw patient today, family was given stroke education booklet by nursing yesterday.
--- NOTE | 2024-09-29 15:18 | ECG_ITS ---
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 Measurements Intervals [place] Rate: 63 P: 29 OR: 190 QRS: -44 QRSD: 110 T: -9 QT: 419 QTc: 431 Interpretive Statements SINUS RHYTHM POSSIBLE LEFT ATRIAL ENLARGEMENT [-0.1mV P-WAVE IN V1/V2] LEFT AXIS DEVIATION [QRS AXIS < -30] PATTERN CONSISTENT WITH PULMONARY DISEASE POSSIBLE LEFT VENTRICULAR HYPERTROPHY [VOLTAGE CRITERIA PLUS LAE OR QRS WIDENING] Compared to ECG 09/29/2024 09:26:13 Left-axis deviation now present Left anterior fascicular block no longer present Electronically Signed On 09-29-2024 18:27:46 SOLUTION ARCHITECT by Aldair Carver M.D. [email or web address]
[2024-09-29 16:45] LABS: Troponin 5 6HR 8.55 ng/L (0-15)
[2024-09-29 16:46] LABS: Troponin 5 6HR Delta -2.45 ng/L (0-12)
--- NOTE | 2024-09-29 17:39 | P.PN_ITS ---
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, 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, he has not had any issues recently no history of atrial fibrillation no history of issues with hypertension -Discussed getting an MRI -MRI results reviewed, discussed with ne urology, recommended continue medical management -Patient was observed in the afternoon, Occupational Therapy at bedside, family members at bedside, he has trouble naming objects such as a comb, continues to have word finding difficulty, receptive aphasia, word salad, he gets frustrated that he cannot come up with the word -Discussed with patient MRI results, res tricted diffusion in the left posterior superior temporal lobe, left insula extending to the left posterior temporal lobe, parietal occipital junction, mild associate edema, plan to medically manage, aspirin, Plavix, statin, fluids, neurochecks -Continue PT OT, speech therapy, -Discussed with family if there is a steve den change in his mentation we will do a stat head CT continue to monitor - at bedside tells me that she feels that his word finding difficulty, word salad is improving as the days progressed Vitals/I&O/Wt Last Vital Signs Temp 98.2 F 09/29/24 15:46 Pulse 67 09/29/24 15:46 Resp 17 09/29/24 15:46 BP 123/68 09/29/24 15:46 Pulse Ox 94 09/29/24 15:46 O2 Del Method Room Air 09/29/24 15:46 09/29/24 09/29/24 09/29/24 06:59 14:59 22:59 Intake Total 240 / 240 Balance 240 / 240 Weight last 48 hrs Weight 94.846 kg Weight 84.085 kg Weight 84.085 kg Weight 2.97 kg Physical Exam 2 Const: COMMON NORMALS: no acute distress GENERAL APPEARANCE: cooperative ORIENTATION/CONSCIOUSNESS: Yes awake and Yes oriented to person; not oriented to place and not oriented to time Eye: COMMON NORMALS: Equal, round and reactive pupils present and EOMs intact bilaterally PUPIL: Yes Equal, round and reactive pupils present Neck/C-Spine: COMMON NORMALS: full ROM and no lymphadenopathy Resp: COMMON NORMALS: normal respiratory effort, No retractions, No use of accessory muscles and clear to auscultation bilaterally AUSCULTATION: clear to auscultation bilaterally Cardio: COMMON NORMALS: regular rate, regular rhythm, S1 normal heart sound present and S2 normal heart sound present RATE: regular rate RHYTHM: r egular rhythm HEART SOUNDS: S1 normal heart sound present and S2 normal heart sound present GI: COMMON NORMALS: Normal to inspection, nondistended, normoactive bowel sounds present and non-tender Extremity: COMMON NORMALS: no pedal edema Neuro: COMMON NORMALS: CN's II-XII intact bilaterally, moves all extremities and no focal motor deficits SENSORIUM/ORIENTATION: Yes oriented to person, No oriented to place and No oriented to time OTHER: Receptive aphasia, word finding difficulty, slurring of his words, word salad, normal balance, able to walk to the bathroom and back without issue Data 09/28/24 20:08 09/29/24 05:40 A&P Assessment and plan (1) Acute CVA (cerebrovascular accident): Plan Acute CVA -Left MCA and posterior cerebral artery territory -MRI showing MR/MR head wo con* [id number] IMPRESSION: 1. A few patchy foci of restricted diffusion in the LEFT posterior superior temporal lobe and LEFT insula extending into the LEFT posterior temporal lobe and parietal occipital junction. Mild associated edema. 2. Moderate to advanced small vessel changes with moderate parenchymal volume loss. 3. Susceptibility artifact overlying the LEFT frontal lobe likely a prominent vessel is seen on the CTA. 4. No other acute findings. -NIH stroke scale 1, no tPA on admission -Plan -Permissive hypertension, treat systolic greater than 220 diastolic greater than 120 -IV fluids -Neurochecks -Aspiration precautions -NIH stroke scale -Continue aspirin, Plavix, statin -PT OT -Cardiac echo -Telemetry monitoring -Speech therapy -Hearing loss, with bilateral hearing aids, family will bring them in -Will consider event monitor on discharge -Full code -Lovenox for DVT prophylaxis Spoke to patient, spoke to neurology about case, spoke to radiology about MRI, spoke to patient family, multiple times Attestations 2 Medical Necessity Statement*: Patient requires hospitalization, inpatient, for acute CVA Diagnoses Acute CVA (cerebrovascular accident) I63.9
[2024-09-29] MEDS: clopidogrel 75 mg Tablet PO (22:09)
[2024-09-29] MEDS: aspirin 81 mg EC Tablet PO (22:09)
[2024-09-29] MEDS: atorvastatin 40 mg Tablet 80 MG PO (22:09)
[2024-09-29] MEDS: sodium chloride 0.9% 1,000 ML 50 ML IV (22:10)
[2024-09-29] MEDS: enoxaparin 40 mg/0.4 mL Syringe SUBCUT (22:11)
[2024-09-30] VITALS: BP 131/72; PULSE 65; RESP 18; TEMP 37; O2SAT 95
[2024-09-30 04:00] VITALS: BP 133/76; PULSE 65; RESP 16; TEMP 37.1; O2SAT 92
[2024-09-30 04:43] LABS: Basophils % 0.2 %; Eosinophils % 0.3 %; Hematocrit 40.1 % (37-53); Lymphocytes # 2.7 10^3/uL (0.8-4.8); Lymphocytes % 20.7 %; Mean Corpuscular HGB Conc 33.9 g/dL (30-55); Mean Corpuscular Hemoglobin 31.6 pg (27-33); Mean Corpuscular Volume 93.3 fl (82-101); Mean Platelet Volume 10.6 fL (7.4-10.4); Monocytes # 1.4 10^3/uL (0.2-0.9); Monocytes % 10.3 %; Nucleated Red Blood Cells % 0 %; Platelet Count 208 10^3/cmm (157-399); Red Cell Distribution Width 14.1 % (12.1-15.1); White Blood Count 13.09 10^3/uL (3.29-11.43)
[2024-09-30 05:13] LABS: Alanine Aminotransferase 12 U/L (0-41); Albumin Level 3.4 g/dL (3.5-5.2); Alkaline Phosphatase 45 U/L (40-130); Anion Gap 15.4 (5-19); Aspartate Amino Transferase 13 U/L (0-40); Blood Urea Nitrogen 11 mg/dL (8-23); Calcium 8.4 mg/dL (8.5-10.5); Carbon Dioxide 24 mmol/L (22-29); Chloride 103 mmol/L (98-107); Creatinine Clr Calc Pharmacy 67.8986; Globulin 2.5 g/dL (1.3-4.6); Glucose 103 mg/dL (65-115); Osmolality Calculated 288 mOsm/kg (285-295); Phosphorus 2.9 mg/dL (2.5-4.5); Potassium 3.4 mmol/L (3.5-5.1); Sodium 139 mmol/L (136-145); Total Bilirubin 0.7 mg/dL (0.15-1.2); Total Protein 5.9 g/dL (6.6-8.7)
[2024-09-30 06:00] VITALS: PULSE 65
[2024-09-30] MEDS: levothyroxine 150 mcg Tablet PO (07:00)
[2024-09-30 08:00] VITALS: BP 137/85; PULSE 68; RESP 14; TEMP 36.8; O2SAT 92
[2024-09-30 08:31] VITALS: PULSE 80; RESP 16; O2SAT 92
[2024-09-30 12:00] VITALS: BP 143/79; PULSE 74; RESP 16; TEMP 36.8; O2SAT 94
--- NOTE | 2024-09-30 12:09 | PC.SOCIAL ---
IMM Updated Updated pt on IMM. No questions voiced. Provided pt a copy. Initialed, dated, & timed a copy & placed in chart.
--- NOTE | 2024-09-30 13:06 | P.DS_ITS ---
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 A few patchy foci of restricted diffusion in the LEFT posterior superior temporal lobe and LEFT insula extending into the LEFT posterior temporal lobe and parietal occipital junction. Mild associated edema. 2. Moderate to advanced small vessel changes with moderate parenchymal volume loss. 3. Susceptibility artifact overlying the LEFT frontal lobe likely a prominent vessel is seen on the CTA. 4. No other acute findings. -NIH stroke scale 1 on admission, no tPA on admission, neurology consulted -Was monitored as inpatient no focal weakness, however had significant word finding difficulty, word salad, productive and receptive aphasia, no visual deficits, ambulating on his own, no swallowing deficits -Received permissive hypertension, IV fluids, neurochecks, PT OT, speech therapy eval as inpatient -Overall patient's clinical condition improved -On 09/30/2024 patient was alert oriented x 3, following all commands receptive aphasia has significantly resolved, his response times are a bit slow nonetheless significantly improved compared to admission, he at times does have word finding difficulty but now it is a very mild, no slurring of his words, very mild word salad -Nonetheless -Will discharge on aspirin, statin, Plavix for 20 more days -Resume nebivolol tomorrow, and hydrochlorothiazide on Thursday -Discharged on clonidine as needed for hypertensive urgency -If any recurrent strokelike symptoms immediate call [phone] -Patient was found to have leukocytosis of 13,000, afebrile, UA within normal limits, chest x-ray within normal limits possible aspiration? Discharged on Augmentin - stroke -If you have any recurrent strokelike symptoms immediately call 911 -Take aspirin 81 mg daily -Take atorvastatin 80 mg daily -You will take Plavix 75 mg daily for 20 remaining days and then will be stopped thereafter, but can be continued based upon discussion with neurology -Please follow-up with neurology in 1 week -Please check your blood pressures twice daily -Record your blood pressures and a blood pressure log -I would take nebivolol starting tomorrow -And then start hydrochlorothiazide on Thursday -I am going to send in clonidine 0.1 mg twice daily to only be used for emergency hypertension, if your systolic blood pressures greater than 180 or diastolic is greater than 100 then use clonidine -I have sent you on Augmentin to be used for antibiotic coverage for the next 5 days -Your hemoglobin A1c is 6.1 you are prediabetic, please discuss with primary care provider as you could qualify for medication such as GLP-1 analogs or Jardiance to decrease your cardio vascular risk, and decrease your future risk of strokes -Please follow-up with cardiology in a month to follow-up your event monitor -If you have any chest pain or palpitations go to emergency room Physical Exam Const: COMMON NORMALS: no acute distress and patient oriented x3 Neck/C-Spine: COMMON NORMALS: no JVD Resp: COMMON NORMALS: normal respiratory effort, No retractions, No use of accessory muscles and clear to auscultation bilaterally AUSCULTATION: clear to auscultation bilaterally Cardio: COMMON NORMALS: no JVD, regular rate, regular rhythm, S1 normal heart sound present and S2 normal heart sound present RATE: regular rate RHYTHM: regular rhythm HEART SOUNDS: S1 normal heart sound present and S2 normal heart sound present GI: COMMON NORMALS: Normal to inspection, nondistended, normoactive bowel sounds present and non-tender Extremity: COMMON NORMALS: no pedal edema Neuro: COMMON NORMALS: patient oriented x3, CN's II-XII intact bilaterally, moves all extremities and no focal motor deficits OTHER: Very mild word finding difficulty, very mild word salad, very mild receptive aphasia, no other focal logic deficits no facial droop, no slurring of words, no visual deficits, no cerebellar signs Psych: COMMON NORMALS: mental status grossly normal Discharge Data Studies Completed and Pending Completed Studies During Hospitalization Category Date Time Status CT head wo con* [id number] Stat Cat Scan 09/28/24 19:50 Completed CTA head neck [CT angio headneck* [id number]] Stat Cat Scan 09/28/24 19:50 Completed XR chest 1V portable [id number] Stat Exams 09/28/24 19:50 Completed MR head wo con* [id number] Routine MRI 09/29/24 08:01 Completed CV. echo lmt wo/w bubble [id number] Routine Ultrasound 09/28/24 21:49 Completed Pending at discharge Category Date Time Status Complete Blood Count w/Auto AM LABS Lab 10/01/24 04:00 Ordered Complete Blood Count w/Auto AM LABS Lab 10/02/24 04:00 Ordered Comprehensive Metabolic Panel AM LABS Lab 10/01/24 04:00 Ordered Comprehensive Metabolic Panel AM LABS Lab 10/02/24 04:00 Ordered Magnesium AM LABS Lab 10/01/24 04:00 Ordered Magnesium AM LABS Lab 10/02/24 04:00 Ordered Phosphorus AM LABS Lab 10/01/24 04:00 Ordered Phosphorus AM LABS Lab 10/02/24 04:00 Ordered Radiology Impressions Chest X-Ray 09/28/24 19:50 IMPRESSION: Cardiomegaly with mild pulmonary vascular congestion. Head CT 09/28/24 19:50 IMPRESSION: No acute intracranial abnormality. ASSESSMENT: ASPECTS ([place] Stroke Program Early CT Score) is 10. ADDENDUM: 09/28/242010 COMMENT: THIS REPORT CONTAINS FINDINGS THAT MAY BE CRITICAL TO PATIENT CARE. The exam findings were verbally communicated by me to FRANCIE WEI via telephone conference at 8:10 PM AIRCRAFT LAYOUT WORKER on 09/28/2024. The findings were acknowledged and understood. Head/Neck CTA 09/28/24 19:50 IMPRESSION: No large vessel stenosis or occlusion. IMPRESSION: No stenosis or occlusion. REFERENCES: NASCET CRITERIA. The degree of stenosis in the cervical segment of the internal carotid artery is based on NASCET criteria. Normal is no stenosis. Mild is less than 50% stenosis. Moderate is 50-69% stenosis. Severe is 70% to 99% stenosis. Total occlusion is no detectable patent lumen. ADDENDUM: 09/28/242020 COMMENT: THIS REPORT CONTAINS FINDINGS THAT MAY BE CRITICAL TO PATIENT CARE. The exam findings were verbally communicated by me to FRANCIE WEI via telephone conference at 8:19 PM AIRCRAFT LAYOUT WORKER on 09/28/2024. The findings were acknowledged and understood. Head MRI 09/29/24 08:01 IMPRESSION: 1. A few patchy foci of restricted diffusion in the LEFT posterior superior temporal lobe and LEFT insula extending into the LEFT posterior temporal lobe and parietal occipital junction. Mild associated edema. 2. Moderate to advanced small vessel changes with moderate parenchymal volume loss. 3. Susceptibility artifact overlying the LEFT frontal lobe likely a prominent vessel is seen on the CTA. 4. No other acute findings. Notified Garrick Castellano MD at 09/29/2024 1:24 PM. Laboratory Results WBC 13.09 10^3/uL (3.29-11.43) H 09/30/24 04:15 RBC 4.30 10^6/uL (3.85-5.65) 09/30/24 04:15 Hgb 13.60 g/dL (11.27-16.99) 09/30/24 04:15 Hct 40.1 % (37-53) 09/30/24 04:15 MCV 93.3 fl (82-101) 09/30/24 04:15 MCH 31.6 pg (27-33) 09/30/24 04:15 MCHC 33.9 g/dL (30-55) 09/30/24 04:15 RDW 14.1 % (12.1-15.1) 09/30/24 04:15 Plt Count 208 10^3/cmm (157-399) 09/30/24 04:15 MPV 10.6 fL (7.4-10.4) H 09/30/24 04:15 Neut % (Auto) 68.0 % 09/30/24 04:15 Lymph % (Auto) 20.7 % 09/30/24 04:15 [place] % (Auto) 10.3 % 09/30/24 04:15 Eos % (Auto) 0.3 % 09/30/24 04:15 Baso % (Auto) 0.2 % 09/30/24 04:15 Neut # (Auto) 8.90 10^3/uL (1.8-7.7) H 09/30/24 04:15 Lymph # (Auto) 2.7 10^3/uL (0.8-4.8) 09/30/24 04:15 [place] # (Auto) 1.4 10^3/uL (0.2-0.9) H 09/30/24 04:15 Eos # (Auto) 0.0 10^3/uL (0.0-0.8) 09/30/24 04:15 Baso # (Auto) 0.0 10^3/uL (0.0-0.1) 09/30/24 04:15 Nucleated RBC % (auto) 0 % 09/30/24 04:15 Nucleated RBCs # 0.0 /100WBC 09/30/24 04:15 PT 13.40 SECONDS (12.1-14.9) 09/28/24 20:08 INR 0.96 (0.8-1.2) 09/28/24 20:08 APTT 28.7 SECONDS (23.9-36.7) 09/28/24 20:08 Sodium 139 mmol/L (136-145) 09/30/24 04:15 Potassium 3.4 mmol/L (3.5-5.1) L 09/30/24 04:15 Chloride 103 mmol/L (98-107) 09/30/24 04:15 Carbon Dioxide 24 mmol/L (22-29) 09/30/24 04:15 Anion Gap 15.4 (5-19) 09/30/24 04:15 BUN 11 mg/dL (8-23) 09/30/24 04:15 Creatinine 1.0 mg/dL (0.7-1.2) 09/30/24 04:15 GFR Calculation Not Reportable 09/30/24 04:15 Glucose 103 mg/dL (65-115) 09/30/24 04:15 POC Glucose 95 mg/dL (70-110) 09/28/24 20:14 Estimat Average Glucose 128 09/28/24 20:08 Hemoglobin A1c 6.1 % (4.0-6.0) H 09/28/24 20:08 Calculated Osmolality 288 mOsm/kg (285-295) 09/30/24 04:15 Calcium 8.4 mg/dL (8.5-10.5) L 09/30/24 04:15 Phosphorus 2.9 mg/dL (2.5-4.5) 09/30/24 04:15 Magnesium 2.0 mg/dL (1.7-2.3) 09/30/24 04:15 Total Bilirubin 0.7 mg/dL (0.15-1.2) 09/30/24 04:15 AST 13 U/L (0-40) 09/30/24 04:15 ALT 12 U/L (0-41) 09/30/24 04:15 Alkaline Phosphatase 45 U/L (40-130) 09/30/24 04:15 Troponin T Baseline 11 ng/L (0-15) 09/29/24 09:43 Troponin T 120 Minute 11.80 ng/L (0-15) 09/29/24 12:10 Delta Troponin T 0.80 ABS# (0-10) 09/29/24 12:10 Troponin T Hi Sens 6Hr 8.55 ng/L (0-15) 09/29/24 15:40 Troponin T Hi Sens 6Hr Delta -2.45 ng/L (0-12) L 09/29/24 15:40 Total Protein 5.9 g/dL (6.6-8.7) L 09/30/24 04:15 Albumin 3.4 g/dL (3.5-5.2) L 09/30/24 04:15 Globulin 2.5 g/dL (1.3-4.6) 09/30/24 04:15 Vitamin B12 979 pg/mL (232-1245) 09/28/24 20:08 TSH 0.05 uIU/mL (0.27-4.20) L 09/28/24 20:08 Free T4 1.55 ng/dL (0.82-1.77) 09/29/24 05:40 Free T3 3.1 PG/ML (2.0-4.4) 09/29/24 05:40 Urine Color Yellow (Yellow) 09/28/24 22:22 Urine Appearance Clear (CLEAR) 09/28/24 22:22 Urine pH 5.0 (5-7) 09/28/24 22:22 Ur Specific [place] 1.047 (1.005-1.030) H 09/28/24 22:22 Urine Protein Negative (Negative) 09/28/24 22:22 Urine Glucose (UA) Negative (Normal) 09/28/24 22:22 Urine Ketones Trace (Negative) 09/28/24 22:22 Urine Blood Negative (Negative) 09/28/24 22:22 Urine Nitrate Negative (Negative) 09/28/24 22:22 Urine Bilirubin Negative (Negative) 09/28/24 22:22 Urine Urobilinogen 1.0 mg/dL (Negative) 09/28/24 22:22 Ur Leukocyte Esterase Negative (Negative) 09/28/24 22:22 Urine RBC 0-2 /hpf (0-2) 09/28/24 22:22 Urine WBC 0-5 /hpf (0-5) 09/28/24 22:22 Ur Squamous Epith Cells 0-5 /hpf (0-5) 09/28/24 22:22 Amorphous Sediment Not Reportable 09/28/24 22:22 Urine Bacteria None seen /hpf (NONE) 09/28/24 22:22 Hyaline Casts 0.81 /lpf 09/28/24 22:22 Vitals Last Vital Signs Temp 98.3 F 09/30/24 08:00 Pulse 80 09/30/24 08:31 Resp 16 09/30/24 08:31 BP 137/85 09/30/24 08:00 Pulse Ox 92 09/30/24 08:31 O2 Del Method Room Air 09/30/24 08:31 Discharge Plan Discharge Patient Disposition: Home Condition: Stable Prescriptions: New atorvastatin 40 mg Tablet 80 mg PO Q24H 30 Days Qty: 30 0RF clopidogrel 75 mg Tablet 75 mg PO Q24H 20 Days Qty: 20 0RF aspirin 81 mg Tablet,Delayed Release (Dr/Ec) 81 mg PO Q24H 30 Days Qty: 30 0RF clonidine HCl 0.1 mg tablet 0.1 mg PO BID PRN (Reason: hypertensive emergency) 30 Days Qty: 60 0RF Rx Instructions: for sbp>180 or dbp>100 amoxicillin-pot clavulanate 875-125 mg tablet 1 tab PO BID 5 Days Qty: 10 0RF Continued levothyroxine 150 mcg tablet 150 mcg PO QAM nebivolol 10 mg tablet 10 mg PO DAILY nitroglycerin 0.4 mg Tablet, Sublingual 0.4 mg SUBLINGUAL Q5M PRN (Reason: Chest Pain) Rx Instructions: do not exceed 3 doses per episode omeprazole magnesium [Prilosec OTC] 20 mg Tablet,Delayed Release (Dr/Ec) 20 mg PO BID Held hydrochlorothiazide 25 mg tablet 12.5 mg PO DAILY Hold Instructions: Resume on 10/03/24. Discharge Orders: Discharge Order (Routine); Ordered 09/30/24 Ordered By: Garrick Castellano Other Ambulatory Orders: Speech Language Pathology Eval and Treat Outpatient (Order) Timeframe: 1 Day Facility: [facility] - Location: PT & CRM SYSTEM ADMINISTRATOR [place] Ordered By: Garrick Castellano MCT/Event Monitor 30 Days (Routine) Timeframe: 1 Day Facility: [facility] - Location: Radiology Ordered By: Garrick Castellano Referrals: Matthew Thomason MD [Physician] - 1 week (We have notified your physician's clinic of the need for a follow-up appointment to be scheduled. If you have not heard from them within the next 2 business days, please call them directly. ) Chuck Chamorro MD [Primary Care Provider] - (We have notified your physician's clinic of the need for a follow-up appointment to be scheduled. If you have not heard from them within the next 2 business days, please call them directly. ) Sara Bernstein MD [Physician] - 1 month (We have notified your physician's clinic of the need for a follow-up appointment to be scheduled. If you have not heard from them within the next 2 business days, please call them directly. ) Discharge Diet: Cardiac Discharge Activity: Resume usual activity Patient Instructions: Clonidine (By mouth), Aspirin (By mouth), Amoxicillin/Clavulanate Potassium (By mouth), Atorvastatin (By mouth), Clopidogrel (By mouth), Transient Ischemic Attack (DC), Self Care Measures After a Stroke (DC), Opioid Safety, Stroke Stoplight Activity Restrictions/Additional Instructions: - stroke -If you have any recurrent strokelike symptoms immediately call 911 -Take aspirin 81 mg daily -Take atorvastatin 80 mg daily -You will take Plavix 75 mg daily for 20 remaining days and then will be stopped thereafter, but can be continued based upon discussion with neurology -Please follow-up with neurology in 1 week -Please check your blood pressures twice daily -Record your blood pressures and a blood pressure log -I would take nebivolol starting tomorrow -And then start hydrochlorothiazide on Thursday -I am going to send in clonidine 0.1 mg twice daily to only be used for emergency hypertension, if your systolic blood pressures greater than 180 or diastolic is greater than 100 then use clonidine -I have sent you on Augmentin to be used for antibiotic coverage for the next 5 days -Your hemoglobin A1c is 6.1 you are prediabetic, please discuss with primary care provider as you could qualify for medication such as GLP-1 analogs or Jardiance to decrease your cardio vascular risk, and decrease your future risk of strokes -Please follow-up with cardiology in a month to follow-up your event monitor -If you have any chest pain or palpitations go to emergency room Discharge Attestations Time Spent in Discharge Care*: greater than 30 min Quality Metrics Clinical Quality Measures [ Cerebrovascular Accident { Contraindication to Antithrombotic: None; antithrombotic prescribed; Contraindication to Anticoagulation: Overlap treatment not indicated; Contraindication to Statin: None; Statin prescribed;}. No reported AMI, CVA or VTE this stay] Coding Level of Care Code 60560 Total time (in minutes) for Discharge: 45 Diagnoses Acute CVA (cerebrovascular accident) I63.9
== END 2024-09-30 14:25 | disposition home or self-care (01) | DRG 65 ==
LOC: ER 21:41 → MEDSURG 22:20
PROVIDERS: Admitting Provider Internal Medicine; Emergency Provider Emergency Medicine; PCP Family Medicine; Visit Provider Family Medicine
DX: I63.9 Cerebral infarction, unspecified (principal); G81.91 Hemiplegia, unspecified affecting right dominant side; R29.810 Facial weakness; R47.01 Aphasia; Z86.73 Personal history of transient ischemic attack (TIA), and cerebral infarction without residual deficits; Z79.82 Long term (current) use of aspirin; Z79.02 Long term (current) use of antithrombotics/antiplatelets; Z87.820 Personal history of traumatic brain injury; E03.9 Hypothyroidism, unspecified; I10 Essential (primary) hypertension; H91.93 Unspecified hearing loss, bilateral; Z97.4 Presence of external hearing-aid; E87.6 Hypokalemia; K59.00 Constipation, unspecified; E66.01 Morbid (severe) obesity due to excess calories; Z68.32 Body mass index [BMI] 32.0-32.9, adult
CPT/HCPCS: 36415; 36416; 70450; 70496; 70498; 70551; 71045; 80048; 80053; 81001; 82607; 82962; 83036; 83735; 84100; 84439; 84443; 84481; 84484; 85025; 85610; 85730; 92507; 92523; 92610; 93005; 96372; 97116; 97161; 97165; 99285; C8924; G0378; J1650; J2405; J2765; J3411; J7030

== ENCOUNTER → 2024-10-12 07:50 | Outpatient (BNVA) | payer MEDICARE, SELFPAY | PROVIDERS: PCP Family Medicine; Referring Provider Family Medicine; Visit Provider Psychiatry & Neurology Neurology | DX: I63.9 Cerebral infarction, unspecified (principal) | CPT/HCPCS: 99212 ==

== ENCOUNTER → 2025-01-31 13:16 | Outpatient (BNVA) | payer MEDICARE, SELFPAY | PROVIDERS: PCP Family Medicine; Visit Provider Psychiatry & Neurology Neurology | DX: I63.9 Cerebral infarction, unspecified (principal) | CPT/HCPCS: 99212 ==

== ENCOUNTER → 2025-05-01 12:29 | Outpatient (BNVA) | payer MEDICARE, SELFPAY | PROVIDERS: PCP Family Medicine; Visit Provider Internal Medicine Cardiovascular Disease | DX: I10 Essential (primary) hypertension (principal); I48.91 Unspecified atrial fibrillation; Z79.01 Long term (current) use of anticoagulants | CPT/HCPCS: 99214 ==

== ENCOUNTER 2025-09-19 12:39 | Emergency (ER) | payer MEDICARE, SELFPAY ==
[2025-09-19 12:46] VITALS: BP 160/75; PULSE 57; RESP 18; TEMP 36.4; O2SAT 95; BMI 31.3
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
--- OUTSIDE RECORDS SUMMARY | 2025-09-19 12:49 | XMS_ITS | Encounter Summary ---
Author Organization [facility] Address [address] [place] [address] Care Team Providers Care Other Sports Coach Or Instructor Name Role Phone Chuck Chamorro MD Primary Care Provider [phone] Encounter Details Date Type Department Care Team (Latest Contact Info) Description 07/09/2005 Outpatient Historical [facility] Medicine- [address] [phone] Chuck Chamorro MD [address] [phone] MED EXAM NEC-ADMIN PURP (Primary Dx) Social History Tobacco Use Types Packs/Day Years Used Date Smoking Tobacco: Never Assessed Sex and Gender Information Value Date Recorded Sex Assigned at Not on file Legal Sex Male 4:29 AM CLIENT TECHNICAL SPECIALIST Gender Identity Not on file Sexual Orientation Not on file documented as of this encounter Plan of Treatment Not on file documented as of this encounter Visit Diagnoses Diagnosis Other general medical examination for administrative purposes- Primary documented in this encounter Care Teams Other Sports Coach Or Instructor Relationship Specialty Start Date End Date Chuck Chamorro MD PCP - General 05/16/08 documented as of this encounter
--- OUTSIDE RECORDS SUMMARY | 2025-09-19 12:49 | XMS_ITS | Encounter Summary ---
Author Organization [facility] Address [address] [place] [address] Care Team Providers Care Machine Leather Trimmer Name Role Phone Chuck Chamorro MD Primary Care Provider [phone] Encounter Details Date Type Department Care Team (Late st Contact Info) Description 09/12/2025 External Device Data [facility] ABSTRACTION Provider, Abstract NO ADDRESS ON FILE Social History Tobacco Use Types Packs/Day Years [...] on file Legal Sex Male 2:48 AM ADVERTISING PROJECT MANAGER Gender Identity Not on file Sexual Orientation Not on file documented as of this encounter Plan of Treatment Upcoming Encounters Date Type Department Care Team (Late st Contact Info) Description 10/05/2025 2:40 PM ADVERTISING PROJECT MANAGER Office Visit [facility] Medicine [place] [address] [facility] [address] [place] [address] Chuck Chamorro MD [address] [facility] [address] [place] [address] documented as of this encounter Visit Diagnoses Not on filedocumented in this encounter Care Teams Machine Leather Trimmer Relationship Specialty Start Date End Date Chuck Chamorro MD PCP - General 05/16/08 documented as of this encounter
--- OUTSIDE RECORDS SUMMARY | 2025-09-19 12:49 | XMS_ITS | Encounter Summary ---
Author Organization [facility] Address [address] [place] [address] Care Team Providers Care Medical Pathology Teacher Name Role Phone Chuck Chamorro MD Primary Care Provider Encounter Details Date Type Department Care Team (Latest Contact Info) Description 03/18/2004 Outpatient Historical [facility] Medicine [place] [address] [facility] [address] [place] [phone] Chuck Chamorro MD [address] [facility] [address] [place] [phone] HYPOTHYROIDISM NOS (Primary Dx); ESOPHAGEAL REFLUX Social History Tobacco Use Types Packs/Day Years Used Date Smoking Tobacco: Never Assessed Sex and Gender Information Value Date Recorded Sex Assigned at Not on file Legal Sex Male 4:29 AM ROOF TECHNICIAN Gender Identity Not on file Sexual Orientation Not on file documented as of this encounter Plan of Treatment Not on file documented as of this encounter Visit Diagnoses Diagnosis Unspecified hypothyroidism- Primary Esophageal reflux documented in this encounter Care Teams Medical Pathology Teacher Relationship Specialty Start Date End Date Chuck Chamorro MD PCP - General 05/16/08 documented as of this encounter
--- OUTSIDE RECORDS SUMMARY | 2025-09-19 12:49 | XMS_ITS ---
Author Organization [facility] Address [address] Aguirre: Epic Prelude ADT [place] [address] Care Team Providers Care Sanitation Laborer Name Role Phone Chuck Chamorro MD Primary Care Provider Active Problems Problem Noted Date Diagnosed Date Anginal equivalent 08/10/2024 Transient confusion 07/17/2022 Overview (07/17/2022): 07/04/22 Seen at [facility] in [place] No definitive cause found. Sx resolved spontaneously within a few hours History of TIA (transient ischemic attack) and s troke 07/17/2022 Overview (07/17/2022): 07/04/22 Seen at [facility] in [place] No definitive cause found. Sx resolved spontaneously [...] hematoma evacuation 06/20/2016 Overview (01/17/2021): September 2015. [place], [place] Obesity (BMI 30.0-34.9) 01/30/2015 Essential hypertension 03/02/2012 Celiac disease 06/18/2008 Current Treatment and Therapy Plans No current plan information found. Past Treatment and Therapy Plans No past plan information found. Lifetime Dose Tracking * Chemical Lifetime Dose Automatic Entry Manual Entr y Effective Dose 14.7 mSv 0 mSv 14.7 mSv Total DLP 1,138 DLP 0 DLP 1,138 DLP CTDIvol Max 25.3 mGy 0 mGy 25.3 mGy CTDIvol Min 25.3 mGy 0 mGy 25.3 mGy Resolved Problems Problem Noted Date Diagnosed Date [...]
--- OUTSIDE RECORDS SUMMARY | 2025-09-19 12:49 | XMS_ITS | Encounter Summary ---
Author Organization [facility] Address [address] [place] [address] Care Team Providers Care Live In Caregiver Name Role Phone Chuck Chamorro MD Primary Care Provider Encounter Details Date Type Department Care Team (Latest Contact Info) Description 12/10/2000 Outpatient Historical [facility] Medicine [place] [address] [facility] [address] [place] [phone] Chuck Chamorro MD [address] [phone] Reflux esophagitis (Primary Dx) Social History Tobacco Use Types Packs/Day Years Used Date Smoking Tobacco: Never Assessed Sex and Gender Information Value Date Recorded Sex Assigned at Not on file Legal Sex Male 4:29 AM OPTOMETRIST/PRACTICE OWNER Gender Identity Not on file Sexual Orientation Not on file documented as of this encounter Plan of Treatment Not on file documented as of this encounter Visit Diagnoses Diagnosis Reflux esophagitis- Primary documented in this encounter Care Teams Live In Caregiver Relationship Specialty Start Date End Date Chuck Chamorro MD PCP - General 05/16/08 documented as of this encounter
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
--- OUTSIDE RECORDS SUMMARY | 2025-09-19 12:49 | XMS_ITS | Encounter Summary ---
Author Organization [facility] Address [address] [place] [address] Care Team Providers Care [employer] Team Member Name Role Phone Chuck Chamorro MD Primary Care Provider Encounter Details Date Type Department Care Team (Late st Contact Info) Description 08/06/2025 Results Follow-Up [facility] [place] [address] [place] [address] Chuck Chamorro MD [address] [facility] [address] [place] [address] BASIC METABOLIC PANEL Social History Tobacco Use Types Packs/Day Years [...] on file Legal Sex Male 2:48 AM FITTER TYPE BAR AND SEGMENT Gender Identity Not on file Sexual Orientation Not on file documented as of this encounter Miscellaneous Notes * Result Encounter Note - Chuck Chamorro MD - 08/06/2025 5:01 PM FITTER TYPE BAR AND SEGMENT -Vitamin D level is in acceptable range -Parathyroid hormone is normal -Thyroid labs are in normal/acceptable range -Total cholesterol, LDL, and Non HDL are in acceptable ranges -Hemoglobin A1c is 5.9 which is in prediabetic range but this is still in perfectly acceptable range -Electrolytes, blood sugar, and kidney function are in acceptable range Continue medications as current Recheck fasting lipids, TSH, free T4, and hemoglobin A1c in 6 months ER TYPE BAR AND SEGMENT documented in this encounter Plan of Treatment Upcoming Encounters Date Type Department Care Team (Late st Contact Info) Description 10/05/2025 2:40 PM FITTER TYPE BAR AND SEGMENT Office Visit [facility] [place] [address] [place] [address] Chuck Chamorro MD [address] [place] [phone] documented as of this encounter Visit Diagnoses Not on filedocumented in this encounter Care Teams [employer] Team Member Relationship Specialty Start Date End Date Chuck Chamorro MD PCP - General 05/16/08 documented as of this encounter
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
--- OUTSIDE RECORDS SUMMARY | 2025-09-19 12:49 | XMS_ITS | Encounter Summary ---
Author Organization [facility] Address [address] [place] [address] Care Team Providers Care Aircraft Body Repairer Name Role Phone Chuck Chamorro MD Primary Care Provider Encounter Details Date Type Department Care Team (Latest Contact Info) Description 08/23/2002 Outpatient Historical [facility] Medicine- [facility] [address] [place] [phone] Chuck Chamorro MD [address] [phone] GASTRITIS/DUODEN NOS W/O HEMORRH (Primary Dx); DERMATOPHYTOSIS OF GROIN Social History Tobacco Use Types Packs/Day Years Used Date Smoking Tobacco: Never Assessed Sex and Gender Information Value Date Recorded Sex Assigned at Not on file Legal Sex Male 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
--- OUTSIDE RECORDS SUMMARY | 2025-09-19 12:49 | XMS_ITS | Encounter Summary ---
Author Organization [facility] Address [address] [place] [address] Care Team Providers Care Certified Dental Assistant Name Role Phone Chuck Chamorro MD Primary Care Provider [phone] Encounter Details Date Type Department Care Team (Latest Contact Info) Description 07/24/2006 Outpatient Historical [facility] Medicine [place] [address] [facility] [address] [place] [phone] Chuck Lizarraga MD NO ADDRESS ON FILE Unspecified Hypothyroidism (Primary Dx); Esophageal Reflux; Hematuria; Anxiety State, Unspecified Social History Tobacco Use Types Packs/Day Years Used Date Smoking Tobacco: Never Assessed Sex and Gender Information Value Date Recorded Sex Assigned at Not on file Legal Sex Male 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
--- OUTSIDE RECORDS SUMMARY | 2025-09-19 12:49 | XMS_ITS | Encounter Summary ---
Author Organization [facility] Address [address] [place] [address] Care Team Providers Care Cracking Still Operator Name Role Phone Chuck Chamorro MD Primary Care Provider Encounter Details Date Type Department Care Team (Latest Contact Info) Description 07/27/2000 Outpatient Historical [facility] Medicine [place] [address] [facility] [address] [place] [phone] Chuck Chamorro MD [address] [facility] [address] [place] [phone] Esophageal reflux (Primary Dx); Diarrhea Social History Tobacco Use Types Packs/Day Years Used Date Smoking Tobacco: Never Assessed Sex and Gender Information Value Date Recorded Sex Assigned at Not on file Legal Sex Male 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
--- OUTSIDE RECORDS SUMMARY | 2025-09-19 12:49 | XMS_ITS | Encounter Summary ---
Author Organization [facility] Address [address] [place] [address] Care Team Providers Care Fretted Instrument Repairer Name Role Phone Chuck Chamorro MD Primary Care Provider Encounter Details Date Type Department Care Team (Latest Contact Info) Description 11/28/1998 Outpatient Historical [facility] [address] [place] [phone] Aaron Jorgensen, [address] [place] [address] Esophageal reflux (Primary Dx) Social History Tobacco Use Types Packs/Day Years Used Date Smoking Tobacco: Never Assessed Sex and Gender Information Value Date Recorded Sex Assigned at Not on file Legal Sex Male 4:29 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
--- OUTSIDE RECORDS SUMMARY | 2025-09-19 12:49 | XMS_ITS | Encounter Summary ---
Author Organization [facility] Address [address] [place] [address] Care Team Providers Care Mobility Engineer Name Role Phone Chuck Chamorro MD Primary Care Provider [phone] Encounter Details Date Type Department Care Team (Latest Contact Info) Description 01/21/2001 Outpatient Historical [facility] Medicine [place] [address] [facility] [address] [place] [address] Chuck Chamorro MD [address] [phone] Reflux esophagitis (Primary Dx); Dizziness and giddiness Social History Tobacco Use Types Packs/Day Years Used Date Smoking Tobacco: Never Assessed Sex and Gender Information Value Date Recorded Sex Assigned at Not on file Legal Sex Male 4:29 AM SUPERVISING ARCHITECT Gender Identity Not on file Sexual Orientation Not on file documented as of this encounter Plan of Treatment Not on file documented as of this encounter Visit Diagnoses Diagnosis Reflux esophagitis- Primary Dizziness and giddiness documented in this encounter Care Teams Mobility Engineer Relationship Specialty Start Date End Date Chuck Chamorro MD PCP - General 05/16/08 documented as of this encounter
--- OUTSIDE RECORDS SUMMARY | 2025-09-19 12:49 | XMS_ITS | Encounter Summary ---
Author Organization [facility] Address [address] [place] [address] Care Team Providers Care Licensed Optician Name Role Phone Chuck Chamorro MD Primary Care Provider Encounter Details Date Type Department Care Team (Latest Contact Info) Description 12/13/1999 Outpatient Historical [facility] Medicine [place] [address] 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
--- OUTSIDE RECORDS SUMMARY | 2025-09-19 12:49 | XMS_ITS | Encounter Summary ---
Author Organization [facility] Address [address] [place] [address] Care Team Providers Care Replacer Name Role Phone Chuck Chamorro MD Primary Care Provider Encounter Details Date Type Department Care Team (Latest Contact Info) Description 07/07/2001 Outpatient Historical [facility] Medicine- [facility] [address] [place] [phone] Chuck Chamorro MD [address] [phone] Diarrhea (Primary Dx) Social History Tobacco Use Types Packs/Day Years Used Date Smoking Tobacco: Never Assessed Sex and Gender Information Value Date Recorded Sex Assigned at Not on file Legal Sex Male 4:29 AM WAREHOUSE UNLOADER Gender Identity Not on file Sexual Orientation Not on file documented as of this encounter Plan of Treatment Not on file documented as of this encounter Visit Diagnoses Diagnosis Diarrhea- Primary documented in this encounter Care Teams Replacer Relationship Specialty Start Date End Date Chuck Chamorro MD PCP - General 05/16/08 documented as of this encounter
--- NOTE | 2025-09-19 13:11 | ED_ITS ---
HPI - Abdominal Pain 2 General: Chief Complaint: Abdominal Pain Stated Complaint: back/abdominal right side pain Time Seen by Provider: 09/19/25 13:05 History of Present Illness: 80-year-old male presents emergency room complaining of right flank pain. He has had renal stones in the past states this feels similar to what he had previously. Patient not noticing any gross urine dysuria. No fever sweats or chills. He has had some nausea 1 or 2 episodes of vomiting and some loose stools. Denies hematochezia melena hematemesis or coffee-ground emesis. Associated Symptoms: Denies chills, dysuria, fever(s) and hematuria Related Data Home Medications ?Medication ?Instructions ?Recorded ?Confirmed hydrochlorothiazide 25 mg tablet 12.5 mg PO DAILY 06/1505/18/25 Held on 09/30/24. Instructions: Resume on 10/03/24. levothyroxine 150 mcg tablet 150 mcg PO QAM 09/29/24 0 05/18/25 omeprazole magnesium 20 mg 20 mg PO BID 09/29/2405/18 tablet,delayed release (Prilosec OTC) Previous Rx's ?Medication ?Instructions ?Recorded lamotrigine 25 mg tablet (Lamictal) 25 mg PO BID 30 da ys #60 tabs 10/12/24 apixaban 5 mg tablet (Eliquis) 5 mg PO BID #180 tabs 0 10/26/24 nebivolol 10 mg tablet 5 mg (1/2 x 10 mg) PO DAILY #90 10/28/24 tabs hydrocodone 5 mg-acetaminophen 325 1 tab PO Q6H PRN pa in #12 tabs 09/19/25 mg tablet ondansetron HCl 4 mg tablet 4 mg PO Q6H PRN nausea and 09/19/25 vomiting #20 tabs tamsulosin 0.4 mg capsule 0.4 mg PO DAILY #10 caps Allergies Allergy/AdvReac Type Severity Reaction Status Date / Time No Known Allergies Allergy Verified 09/19/25 12:50 Review of Systems 2 Const: Denies: fever(s) or chills Card: Denies: chest pain Resp: Denies: dyspnea GI: Denies: abdominal pain : Reports: flank pain; Denies: dysuria, urinary frequency, urinary urgency or hematuria Musc: Denies: neck pain or back pain Skin/Breast: Denies: rash PFSH ED 2 PFSH: Medical History Hypertension Hypothyroidism (acquired) 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', thyroidectomy Traumatic brain injury No pertinent past medical history Social History Smoking and tobacco/nicotine status: never used tobacco/nicotine Substance/Drug Use: never Physical Exam 2 Const: COMMON NORMALS: no acute distress GENERAL APPEARANCE: cooperative and comfortable ORIENTATION/CONSCIOUSNESS: Yes awake, Yes oriented to person, Yes oriented to place and Yes oriented to time HENMT: COMMON NORMALS: normocephalic, atraumatic and hearing grossly normal bilaterally HEAD & SCALP: normocephalic and atraumatic Resp: COMMON NORMALS: normal respiratory effort, No retractions, No use of accessory muscles and clear to auscultation bilaterally AUSCULTATION: clear to auscultation bilaterally Cardio: COMMON NORMALS: regular rate, regular rhythm and No murmurs present (Cardio) RATE: regular rate RHYTHM: regular rhythm GI: COMMON NORMALS: Soft to palpation and No hepatosplenomegaly present A USCULTATION: Yes normoactive bowel sounds PALPATION: Yes Soft to palpation, No Tenderness to palpation present (GI), No Guarding due to palpation present (GI) and Yes No hepatosplenomegaly present Extremity: COMMON NORMALS: normal to inspection, capillary refill normal, no clubbing, cyanosis or edema, no calf tenderness and no pedal edema Neuro: SENSORIUM/ORIENTATION: Yes oriented to person, Yes oriented to place and Yes oriented to time Skin: COMMON NORMALS: no rashes or lesions noted GENERAL SKIN EXAM: no rashes or lesions noted Course 2 Vital Signs: Vital signs: Vital Signs Temperature 97.5 F L 09/19/25 12:46 Pulse Rate 61 09/19/25 14:47 Respiratory Rate 18 09/19/25 12:46 Blood Pressure 136/86 09/19/25 14:47 Pulse Oximetry 95 09/19/25 14:47 Oxygen Delivery Me thod Room Air 09/19/25 13:30 MDM - Abdominal Pain Medical Decision Making 72-year-old male presents with flank pain history of kidney stones. He does have some microscopic hematuria his white count is slightly elevated 11.9. No sign of infection on his urine. CT reviewed patient has a UVJ stone approximately 3 mm. No other acute abnormality. Creatinine is 1.3. Reviewed findings with the patient we will discharge him home with tamsulosin to help the stone pass also given hydrocodone and ondansetron. Strain urine to collect stone return for pathology. Recommend he follow-up with his primary care doctor for referral to urology return if pain is uncontrolled. Medical Records I reviewed the patient's medical records. Lab Data I reviewed the patient's lab results. 09/19/25 13:15 09/19/25 13:15 Labs/Radiology: Radiology Impressions Abdomen/Pelvis CT 09/19/25 13:12 IMPRESSION: Tiny calculus at the RIGHT UVJ at the entrance of the bladder measuring 3 mm. Slight induration about the RIGHT kidney and RIGHT ureter. No significant hydronephrosis. Laboratory Results WBC 11.95 10^3/uL (3.29-11.43) H 09/19/25 13:15 RBC 4.75 10^6/uL (3.85-5.65) 09/19/25 13:15 Hgb 15.00 g/dL (11.27-16.99) 09/19/25 13:15 Hct 45.0 % (37-53) 09/19/25 13:15 MCV 94.7 fl (82-101) 09/19/25 13:15 MCH 31.6 pg (27-33) 09/19/25 13:15 MCHC 33.3 g/dL (30-55) 09/19/25 13:15 RDW 13.8 % (12.1-15.1) 09/19/25 13:15 Plt Count 264 10^3/cmm (157-399) 09/19/25 13:15 MPV 10.9 fL (7.4-10.4) H 09/19/25 13:15 Neut % (Auto) 73.4 % 09/19/25 13:15 Lymph % (Auto) 17.7 % 09/19/25 13:15 [place] % (Auto) 7.9 % 09/19/25 13:15 Eos % (Auto) 0.4 % 09/19/25 13:15 Baso % (Auto) 0.2 % 09/19/25 13:15 Neut # (Auto) 8.78 10^3/uL (1.8-7.7) H 09/19/25 13:15 Lymph # (Auto) 2.1 10^3/uL (0.8-4.8) 09/19/25 13:15 [place] # (Auto) 0.9 10^3/uL (0.2-0.9) 09/19/25 13:15 Eos # (Auto) 0.1 10^3/uL (0.0-0.8) 09/19/25 13:15 Baso # (Auto) 0.0 10^3/uL (0.0-0.1) 09/19/25 13:15 Nucleated RBC % (auto) 0 % 09/19/25 13:15 Nucleated RBCs # 0.0 /100WBC 09/19/25 13:15 Sodium 139 mmol/L (136-145) 09/19/25 13:15 Potassium 3.5 mmol/L (3.5-5.1) 09/19/25 13:15 Chloride 101 mmol/L (98-107) 09/19/25 13:15 Carbon Dioxide 23 mmol/L (22-29) 09/19/25 13:15 Anion Gap 18.5 (5-19) 09/19/25 13:15 BUN 21 mg/dL (8-23) 09/19/25 13:15 Creatinine 1.3 mg/dL (0.7-1.2) H 09/19/25 13:15 GFR Calculation Not Reportable 09/19/25 13:15 Glucose 132 mg/dL (65-115) H 09/19/25 13:15 Calculated Osmolality 293 mOsm/kg (285-295) 09/19/25 13:15 Calcium 8.8 mg/dL (8.5-10.5) 09/19/25 13:15 Total Bilirubin 0.4 mg/dL (0.15-1.2) 09/19/25 13:15 AST 20 U/L (0-40) 09/19/25 13:15 ALT 21 U/L (0-41) 09/19/25 13:15 Alkaline Phosphatase 58 U/L (40-130) 09/19/25 13:15 Total Protein 7.1 g/dL (6.6-8.7) 09/19/25 13:15 Albumin 4.1 g/dL (3.5-5.2) 09/19/25 13:15 Globulin 3.0 g/dL (1.3-4.6) 09/19/25 13:15 Lipase 20 U/L (13-60) 09/19/25 13:15 Urine Color Dark yellow (Yellow) A 09/19/25 14:00 Urine Appearance Clear (CLEAR) 09/19/25 14:00 Urine pH 5.0 (5-7) 09/19/25 14:00 Ur Specific [place] 1.025 (1.005-1.030) 09/19/25 14:00 Urine Protein 1+ (Negative) A 09/19/25 14:00 Urine Glucose (UA) Negative (Normal) 09/19/25 14:00 Urine Ketones Trace (Negative) 09/19/25 14:00 Urine Blood 3+ (Negative) A 09/19/25 14:00 Urine Nitrate Negative (Negative) 09/19/25 14:00 Urine Bilirubin Negative (Negative) 09/19/25 14:00 Urine Urobilinogen 1.0 mg/dL (Negative) 09/19/25 14:00 Ur Leukocyte Esterase Negative (Negative) 09/19/25 14:00 Urine RBC 11-20 /hpf (0-2) H 09/19/25 14:00 Urine WBC 0-5 /hpf (0-5) 09/19/25 14:00 Ur Squamous Epith Cells 0-5 /hpf (0-5) 09/19/25 14:00 Amorphous Sediment Not Reportable 09/19/25 14:00 Urine Bacteria None seen /hpf (NONE) 09/19/25 14:00 Hyaline Casts 2.87 /lpf 09/19/25 14:00 All radiology interpretation(s) finalized by discharge Discharge Plan Discharge Patient Disposition: Home Clinical Impression: Calculus of kidney Condition: Stable Prescriptions: New hydrocodone-acetaminophen 5-325 mg tablet 1 tab PO Q6H PRN (Reason: pain) Qty: 12 0RF tamsulosin 0.4 mg capsule 0.4 mg PO DAILY Qty: 10 0RF ondansetron HCl 4 mg tablet 4 mg PO Q6H PRN (Reason: nausea and vomiting) Qty: 20 0RF No Action lamotrigine [Lamictal] 25 mg tablet 25 mg PO BID 30 Days Qty: 60 2RF Eliquis 5 mg tablet 5 mg PO BID Qty: 180 3RF nebivolol 10 mg tablet 5 mg PO DAILY Qty: 90 3RF Rx Instructions: take 1 tab 10mg in AM take 1/2 tab 5mg in PM levothyroxine 150 mcg tablet 150 mcg PO QAM hydrochlorothiazide 25 mg tablet 12.5 mg PO DAILY omeprazole magnesium [Prilosec OTC] 20 mg Tablet,Delayed Release (Dr/Ec) 20 mg PO BID Discharge Orders: Discharge ED (Routine); Ordered 09/19/25 Ordered By: Philippe Huizar Referrals: Chuck Chamorro MD [Primary Care Provider, Family Practice] Discharge Diet: Usual diet Discharge Activity: Resume usual activity Patient Instructions: Kidney Stones (ED), How to Strain Your Urine (ED), Opioid Safety, Pain Management, Patient Portal & Nicki Instructions Activity Restrictions/Additional Instructions: Thank you for choosing [facility] for your healthcare needs today. It is very important that you follow up as instructed or that you return to the Emergency Department should you have concerns or if your condition changes or worsens in any way. Emergency department visits are focused on emergent conditions, in some cases you may require further evaluation on an outpatient basis. You were seen in the emergency room with complaints of flank pain. Urine showed blood consistent with a kidney stone which the CT confirmed. You have a 3 mm kidney stone about 2 drop into the bladder. You will be discharged home on tamsulosin which relaxes the ureter and allows the stone to pass up quicker. You are also given nausea medicines and pain medications to use as needed. Strain your urine to catch the stone and return it to be evaluated in the lab. Follow-up with your primary care doctor they can refer you to a urologist. (Please note that included in your discharge packet is information concerning opioid safety and pain management. This information is given to all patients were discharged from the ER regardless of their discharge diagnosis or the medicines they usually take or are prescribed.) Print Language: Indonesian Coding Level of Care Code ED Human Capital Manager for Aris Morales
--- NOTE | 2025-09-19 13:12 | CT_ITS ---
WS: [id number] CT ABDOMEN PELVIS TECHNIQUE: Noncontrast CT of the abdomen and pelvis with coronal and sagittal reformatted images. CLINICAL INFORMATION: flank pain COMPARISON: None. DLP: 836.[address] scans at [facility] use at least one of these dose optimization techniques: automated exposure control; mA and/or kV adjustment per patient size (includes targeted exams where dose is matched to clinical indication); or iterative reconstruction. FINDINGS: Adrenal glands are normal. No RIGHT hydronephrosis. Tiny calculus at the RIGHT UVJ at the entrance of the bladder measuring 3 mm. Slight induration about the RIGHT kidney and RIGHT ureter. No hydronephrosis in the LEFT kidney. No obstructing LEFT renal or ureteral calculi. Tiny calyceal tip calculi bilaterally. Calcified granuloma LEFT lower lobe. Small hepatic cyst of the diane hepatis. Small esophageal hiatal hernia. Fatty atrophy of the pancreas. Normal noncontrast spleen. Small splenule. Fat-containing RIGHT periumbilical hernia. Small fat-containing supraumbilical hernia. Fat-containing RIGHT inguinal hernia. Vascular calcification. CT/CT kidney stone [id number] IMPRESSION: Tiny calculus at the RIGHT UVJ at the entrance of the bladder measuring 3 mm. Slight induration about the RIGHT kidney and RIGHT ureter. No significant hydro nephrosis.
[2025-09-19 13:30] VITALS: BP 133/65; PULSE 62; O2SAT 99
[2025-09-19 13:36] LABS: Hematocrit 45.0 % (37-53); Hemoglobin 15.00 g/dL (11.27-16.99); Mean Corpuscular HGB Conc 33.3 g/dL (30-55); Mean Corpuscular Hemoglobin 31.6 pg (27-33); Mean Corpuscular Volume 94.7 fl (82-101); Nucleated Red Blood Cells % 0 %; Platelet Count 264 10^3/cmm (157-399); Red Blood Count 4.75 10^6/uL (3.85-5.65); White Blood Count 11.95 10^3/uL (3.29-11.43)
[2025-09-19 13:54] LABS: Alanine Aminotransferase 21 U/L (0-41); Albumin Level 4.1 g/dL (3.5-5.2); Alkaline Phosphatase 58 U/L (40-130); Anion Gap 18.5 (5-19); Aspartate Amino Transferase 20 U/L (0-40); Blood Urea Nitrogen 21 mg/dL (8-23); Calcium 8.8 mg/dL (8.5-10.5); Carbon Dioxide 23 mmol/L (22-29); Chloride 101 mmol/L (98-107); Globulin 3.0 g/dL (1.3-4.6); Glucose 132 mg/dL (65-115); Lipase 20 U/L (13-60); Osmolality Calculated 293 mOsm/kg (285-295); Potassium 3.5 mmol/L (3.5-5.1); Sodium 139 mmol/L (136-145); Total Protein 7.1 g/dL (6.6-8.7)
[2025-09-19 14:19] LABS: Glucose Urine UA Negative (Normal); Nitrate Urine Negative (Negative); Specific Gravity, Urine 1.025 (1.005-1.030)
[2025-09-19 14:24] LABS: Add Urine Microscopic? YES
[2025-09-19 14:47] VITALS: BP 136/86; PULSE 61; O2SAT 95
== END 2025-09-19 14:50 | disposition home or self-care (01) ==
PROVIDERS: Emergency Medicine; Emergency Provider Family Medicine; PCP Family Medicine
DX: N20.0 Calculus of kidney (principal); Z79.01 Long term (current) use of anticoagulants; I10 Essential (primary) hypertension; Z87.442 Personal history of urinary calculi
CPT/HCPCS: 36415; 74176; 80053; 81001; 83690; 85025; 87086; 96374; 99285; J1885